=== PATIENT | female | born 1950 | race Caucasian/White ===

== ENCOUNTER 2016-06-24 11:18 | Inpatient (IN) | payer OTHER ==
[~2016-06-24] VITALS: Ht 160 cm; Wt 54.4 kg
[~2016-06-24 11:18] MED LIST: ATI.5 PO; ENAL20TA46 PO; LEVO500T6; LEVO500T6 PO; METF1000 PO; SITA50TA3 PO
[2016-06-24 11:41] VITALS: BP 110/79
--- NOTE | 2016-06-24 11:53 | NUR ---
Patient taken to bed 01 via wheelchair per EMT.
--- NOTE | 2016-06-24 12:11 | NUR ---
65/F TO SENT FROM PCP TO ED FOR ABNORMAL LABS OF LOW SODIUM. PT HAS NO MEDICAL COMPLAINS. DENIES PAIN. LUNGS CLEAR BILAT. HR EVEN AND REGULAR. AAOX4. VSS. NO SIGNS OF DISTRESS.
[2016-06-24] MEDS ORDERED: NACL 0.9% 1,000 ML IV ONE (12:15)
--- NOTE | 2016-06-24 12:30 | NUR ---
Dr. Mccann evaluating patient at bedside.
--- NOTE | 2016-06-24 12:35 | NUR ---
Patient appears to be resting comfortably in bed. Vital Signs within normal limits. Respirations even and unlabored.
[2016-06-24 12:41] LABS: BASOPHILS # (AUTO) 0.1 K/uL (0.00-0.22); BASOPHILS % (AUTO) 0.7 % (0.0-2.0); EOSINOPHILS # (AUTO) 0.2 K/uL (0-0.4); EOSINOPHILS % (AUTO) 2.1 % (0.0-4.0); HEMATOCRIT 34.9 % (36-48); HEMOGLOBIN 11.3 g/dL (12.0-16.0); LYMPHOCYTES # (AUTO) 1.4 K/uL (2.5-16.5); LYMPHOCYTES % (AUTO) 14.4 % (20.5-51.1); MEAN CORPUSCULAR HEMOGLOBIN 28 pg (27-31); MEAN CORPUSCULAR HGB CONC 32 g/dL (33-37); MEAN CORPUSCULAR VOLUME 88 fL (80-94); MONOCYTES # (AUTO) 0.5 K/uL (0.8-1.0); MONOCYTES % (AUTO) 5.3 % (1.7-9.3); NEUTROPHILS # (AUTO) 7.5 K/uL (1.8-7.7); NEUTROPHILS % (AUTO) 77.5 % (42.2-75.2); PLATELET COUNT (AUTO) 467 K/uL (140-450); RED BLOOD CELL COUNT(AUTO) 3.97 MIL/uL (4.20-5.40); RED CELL DISTRIBUTION WIDTH 13.5 % (11.6-13.7); WHITE BLOOD COUNT (AUTO) 9.7 K/uL (4.8-10.8)
[2016-06-24 12:52] LABS: ANION GAP 9.5 (8-16); CALCIUM 8.2 mg/dL (8.5-10.1); CARBON DIOXIDE 27.6 mmol/L (21-32); CREATININE 0.6 mg/dL (0.6-1.3); POTASSIUM 4.1 mmol/L (3.5-5.1)
--- NOTE | 2016-06-24 12:53 | NUR ---
Patient taken to XRAY via [facility].
[2016-06-24 12:58] LABS: ALBUMIN 3.4 g/dL (3.4-5.0); MAGNESIUM 1.6 mg/dL (1.8-2.4); PHOSPHORUS 3.4 mg/dL (2.5-4.9); TOTAL BILIRUBIN 0.2 mg/dL (0.0-1.0); TOTAL PROTEIN, SERUM 7.1 g/dL (6.4-8.2)
--- NOTE | 2016-06-24 13:20 | NUR ---
[facility].
--- NOTE | 2016-06-24 14:05 | NUR ---
Patient will be admitted to care of DR BRIAN. Admited to TELE. Will go to room 111A. Belongings list completed. Report to
[2016-06-24 14:20] VITALS: BP 134/70
--- NOTE | 2016-06-24 14:20 | NUR ---
PT ARRIVED FROM ER VIA [facility], PT IS AAOX4, ON ROOM AIR, IV TO RIGHT AC SALINE LOCK PATENT AND INTACT. SKIN INTACT. DAUGHTER AT BEDSIDE. INITIAL ASSESSMENT COMPLETED, REVIEWED PLAN OF CARE WITH BOTH PT AND DAUGHTER BOTH VERBALIZED UNDERSTANDING. ORIENTED PT TO ROOM AND ENVIRONMENT. CALL LIGHT WITHIN REACH. WILL CONTINUE TO MONITOR.
[2016-06-24 16:00] VITALS: BP 134/70
--- NOTE | 2016-06-24 16:05 | NUR ---
PAGED DR. BRIAN, REGARDING NEW ADMISSION ORDERS. AWAITING CALL BACK.
--- NOTE | 2016-06-24 16:43 | NUR ---
PT CURRENTLY VISITING WITH DAUGHTER. ALL NEEDS MET. CALL LIGHT WITHIN REACH. WILL CONTINUE TO MONITOR.
[2016-06-24] MEDS ORDERED: TRAV5SOL OP (17:34)
[2016-06-24] MEDS ORDERED: LORA10TA19 PO (17:34)
[2016-06-24] MEDS ORDERED: SERT50TA PO (17:34)
--- NOTE | 2016-06-24 18:25 | NUR ---
PT CURRENTLY VISITING WITH DAUGHTER. NO S/S OF DISTRESS OR DISCOMFORT NOTED. CALL LIGHT WITHIN REACH. WILL CONTINUE TO MONITOR.
--- NOTE | 2016-06-24 19:25 | NUR ---
ENDORSED PLAN OF CARE TO NIGHT NURSE. PT IN STABLE CONDITION.
--- NOTE | 2016-06-24 19:25 | NUR ---
IN TO SEE PT
--- NOTE | 2016-06-24 19:30 | NUR ---
RECEIVED PT IN STABLE CONDITION FROM AM NURSE, AWAKE,ALERT AND ORIENTED X4, WITH PERIODS OF CONFUSION AT NIGHT PER DAUGHTER. SO BED ALARM ON. ON TELE MONITORING. NO C/O PAIN NOR DISCOMFORT AT THIS TIME. HAS HL ON THE RT AC#20. DR. BRIAN HERE AND SEEN PT. WAITING FOR ORDERS. CALL LIGHT PLACED WITHIN EASY REACH. INSTRUCTED TO CALL FOR ASSISTANCE . PLAN OF CARE STILL NEED TO BE DISCUSSED. WILL CONTINUE TO MONITOR.
[2016-06-24] MEDS ORDERED: LORazepam 2 MG/ML VIAL IVP PRN (19:45)
[2016-06-24] MEDS ORDERED: HYDROcodone/APAP 5/325 MG 1 TAB TAB PO PRN ×2 (19:45)
[2016-06-24] MEDS ORDERED: ONDANSETRON 4 MG/2 ML VIAL IVP PRN (19:45)
[2016-06-24] MEDS ORDERED: LORATADINE 10 MG TAB PO PRN (19:50)
[2016-06-24 20:00] VITALS: BP 145/77
[2016-06-24] MEDS: NACL 0.9% 1,000 ML IV SCH (20:13)
--- NOTE | 2016-06-24 20:13 | NUR ---
IVF STARTED ORDERED. ALSO ROCEPHIN IVPB TO GIVE TONIGHT.
[2016-06-24] MEDS ORDERED: cefTRIAXone 1,000 MG VIAL ONE (20:25)
[2016-06-24] MEDS: ACETAMINOPHEN 325 MG TAB PO PRN (20:27)
[2016-06-24] MEDS ORDERED: NON-FORMULARY ITEM (Travoprost (Travatan Z 5 Ml) 1 DROP) OP SCH (21:00)
[2016-06-24] MEDS ORDERED: INSULIN LISPRO SLIDING SCALE 100 UNITS/ML VIAL SUBQ PRN (21:00)
[2016-06-24] MEDS ORDERED: MAGNESIUM OXIDE 400 MG TAB PO SCH (21:00)
[2016-06-24] MEDS: BLOOD GLUCOSE MONITORING 1 DEV DEV FS SCH (21:00)
--- NOTE | 2016-06-24 21:00 | NUR ---
INSULIN COVERAGE NOT GIVEN PT REFUSED FOR PT HAS GLUCOPHAGE PO TONIGHT.
--- NOTE | 2016-06-24 21:30 | NUR ---
EXPLAINED TO PT WHY SHE IS ON CONTACT ISOLATION ROOM. VERBALIZED UNDERSTANDING.
[2016-06-24] MEDS: metFORMIN 500 MG TAB PO SCH (21:38)
--- NOTE | 2016-06-24 22:20 | NUR ---
MAGNESIUM LEVEL 1.6 ,MAGNESIUM 800 MG PO GIVEN ORDERED. TOLERATED WELL.
--- NOTE | 2016-06-24 23:29 | NUR ---
NO ALLERGIC REACTION NOTED ON ROCEPHIN IV. WILL CONTINUE TO MONITOR.
[2016-06-25 00:20] VITALS: BP 150/88
[2016-06-25 01:39] LABS: APPEARANCE,URINE CLEAR (CLEAR); BILIRUBIN,URINE NEGATIVE (NEGATIVE); BLOOD, URINE NEGATIVE (NEGATIVE); COLOR,URINE YELLOW (YELLOW); LEUKOCYTE ESTERASE ,URINE NEGATIVE (NEGATIVE); NITRITE, URINE NEGATIVE (NEGATIVE); PH,URINE 7.5 (5.0-9.0); PROTEIN,URINE NEGATIVE (NEGATIVE); UGLUCOSE NEGATIVE (NEGATIVE); UROBILINOGEN,URINE 0.2 EU/dL (0.2 - 1)
--- NOTE | 2016-06-25 01:40 | NUR ---
HR ON MONITOR SUDDEN SLOW 46. BUT BACK UP . STILL CHECKED ON PT. AWAKE, NO DISTRESS NOR PAIN NOTED V/S TAKEN 99.1-127/54,63,18, O2 SAT ROOM AIR 98%. WILL CONTINUE TO MONITOR. Addendum: 06/25/16 at 0229 by Karol Maxwell RN CANCEL ABOVE NOTES. CAREGIVER MISTAKE.
[2016-06-25 01:45] LABS: BACTERIA,URINE RARE /HPF (None Seen); RBC,URINE 0-3 /HPF (0-5); WBC,URINE 0-3 /HPF (0-5)
--- NOTE | 2016-06-25 02:45 | NUR ---
SLEEPING WELL AT THIS TIME. NO S/S OF ANY DISCOMFORT NOR PAIN NOTED.
[2016-06-25 04:05] VITALS: BP 134/76
--- NOTE | 2016-06-25 06:16 | NUR ---
BLOOD SUGAR CHECKED RESULT 103. NO INSULIN NEEDED.
[2016-06-25] MEDS: BLOOD GLUCOSE MONITORING 1 DEV DEV FS SCH ×2 (06:18→11:33)
[2016-06-25 06:40] LABS: BASOPHILS # (AUTO) 0.1 K/uL (0.00-0.22); BASOPHILS % (AUTO) 1.2 % (0.0-2.0); EOSINOPHILS # (AUTO) 0.1 K/uL (0-0.4); EOSINOPHILS % (AUTO) 1.8 % (0.0-4.0); HEMATOCRIT 33.5 % (36-48); LYMPHOCYTES # (AUTO) 1.4 K/uL (2.5-16.5); LYMPHOCYTES % (AUTO) 22.2 % (20.5-51.1); MEAN CORPUSCULAR HEMOGLOBIN 29 pg (27-31); MEAN CORPUSCULAR HGB CONC 33 g/dL (33-37); MEAN CORPUSCULAR VOLUME 88 fL (80-94); MONOCYTES # (AUTO) 0.6 K/uL (0.8-1.0); NEUTROPHILS # (AUTO) 3.9 K/uL (1.8-7.7); NEUTROPHILS % (AUTO) 64.8 % (42.2-75.2); PLATELET COUNT (AUTO) 435 K/uL (140-450); RED CELL DISTRIBUTION WIDTH 13.6 % (11.6-13.7); WHITE BLOOD COUNT (AUTO) 6.1 K/uL (4.8-10.8)
[2016-06-25] MEDS ORDERED: LORATADINE 10 MG TAB PO PRN (06:48)
[2016-06-25 07:07] LABS: ALBUMIN 3.1 g/dL (3.4-5.0); ANION GAP 11.9 (8-16); CARBON DIOXIDE 26.1 mmol/L (21-32); CREATININE 0.6 mg/dL (0.6-1.3); MAGNESIUM 1.5 mg/dL (1.8-2.4); TOTAL BILIRUBIN 0.3 mg/dL (0.0-1.0); TOTAL PROTEIN, SERUM 6.6 g/dL (6.4-8.2)
--- NOTE | 2016-06-25 07:18 | NUR ---
ENDORSED PT IN STABLE CONDITION TO AM NURSE.
--- NOTE | 2016-06-25 07:20 | NUR ---
RECEIVED REPORT FROM GEOVANNA YATES. PT IS AAOX4. PT IS ON ROOM AIR. IV TO RIGHT AC #20, PATENT AND INTACT. SKIN IS INTACT. SAFETY PRECAUTIONS IN PLACE WITH BED IN LOWEST POSITION AND SIDE RAILS UP X2. CALL LIGHT WITHIN REACH. PT IS ON CONTACT ISOLATION WITH SIGNS POSTED OUTSIDE OF PT'S ROOM. WILL CONTINUE TO MONITOR.
[2016-06-25 08:00] VITALS: BP 147/119
--- NOTE | 2016-06-25 08:06 | NUR ---
PATIENT HAS BEEN SCREENED AND CATEGORIZED MODERATE NUTRITION RISK. PATIENT WILL BE SEEN WITHIN 3-5 DAYS OF ADMISSION. 06/27/16-06/29/[address]
--- NOTE | 2016-06-25 08:14 | NUR ---
DR. BRIAN IN TO SEE PT. INFORMED HER OF PT'S LOW MAGNESIUM: 1.5. WILL FOLLOW UP ON ORDERS
[2016-06-25] MEDS: metFORMIN 500 MG TAB PO SCH (08:20)
--- NOTE | 2016-06-25 08:23 | NUR ---
CHECKED BP: 147/119. ADMINISTERED MEDICATION ORDERED. PT TOLERATED WELL.
[2016-06-25] MEDS ORDERED: MAG SULF 20 GM/H2O PREMIX DRIP 500 ML IV SCH (08:45)
[2016-06-25] MEDS ORDERED: CITA20TA15 PO (08:46)
[2016-06-25] MEDS ORDERED: ENOXAPARIN 40 MG/0.4 ML SYR SUBQ SCH (09:00)
[2016-06-25] MEDS ORDERED: MAGNESIUM OXIDE 400 MG TAB PO SCH (09:00)
[2016-06-25] MEDS ORDERED: ENALAPRIL 10 MG TAB PO SCH (09:00)
[2016-06-25] MEDS: MAG SULF 2000 MG/WATER PREMIX 50 ML IV SCH ×2 (09:28→11:24)
[2016-06-25] MEDS: NACL 0.9% 1,000 ML IV SCH (09:29)
--- NOTE | 2016-06-25 09:52 | NUR ---
DAUGHTER PRESENT AT BEDSIDE.
[2016-06-25] MEDS: ACETAMINOPHEN 325 MG TAB PO PRN (10:43)
--- NOTE | 2016-06-25 10:43 | NUR ---
PT C/O HEADACHE, ACHING, THROBBING AND CONTINUOUS. 11/11. PT ALSO C/O ANXIETY. ADMINISTERED TYLENOL AND ATIVAN ORDERED PRN. PT TOLERATED WELL. WILL REASSESS.
--- NOTE | 2016-06-25 11:33 | NUR ---
PT TOLERATED MEDS WELL.
[2016-06-25 11:53] VITALS: BP 132/74
--- NOTE | 2016-06-25 12:47 | NUR ---
CHECKED ON PT. RESTING AT THIS TIME, AROUSABLE. PT'S SON, GEORGE PRESENT AT BEDSIDE. CURRENTLY WAITING FOR LAST DOSE OF MAGNESIUM TO FINISH INFUSING BEFORE PT IS DISCHARGED.
--- NOTE | 2016-06-25 14:17 | NUR ---
PT HAS BEEN DISCHARGED. ALL PAPERWORK SIGNED, ALL QUESTIONS ANSWERED. IV DC'ED WITH CANNULA INTACT. ALL BELONGINGS AND PRESCRIPTION IN PT POSSESSION. WRIST BANDS AND TELE MONITOR REMOVED. PT HAS OWN WHEELCHAIR. NOTIFIED DIE PRESS OPERATOR. PT LEFT UNIT IN STABLE CONDITION WITH SON PRESENT AT SIDE.
[2016-06-25] MEDS ORDERED: LATANOPROST 0.005% OP 2.5 ML BTL OP SCH (21:00)
== END 2016-06-25 14:22 | disposition home or self-care (01) | DRG 422 ==
LOC: MED 11:18 → MTU 13:47
PROVIDERS: ADMIT Hospitalist; ATTEND Hospitalist
DX: E87.1 Hypo-osmolality and hyponatremia (principal); E86.1 Hypovolemia; G30.9 Alzheimer's disease, unspecified; I15.2 Hypertension secondary to endocrine disorders; F33.9 Major depressive disorder, recurrent, unspecified; F02.80 Dementia in other diseases classified elsewhere, unspecified severity, without behavioral disturbance, psychotic disturbance, mood disturbance, and anxiety; N39.0 Urinary tract infection, site not specified; E11.9 Type 2 diabetes mellitus without complications; E83.42 Hypomagnesemia; T43.225A Adverse effect of selective serotonin reuptake inhibitors, initial encounter; H40.9 Unspecified glaucoma; Z98.890 Other specified postprocedural states; Z88.1 Allergy status to other antibiotic agents; Z88.0 Allergy status to penicillin; Y92.89 Other specified places as the place of occurrence of the external cause; Z74.01 Bed confinement status
CPT/HCPCS: 36415; 72100; 72220; 80053; 81001; 81003; 82948; 83735; 84100; 84484; 85025; 87081; 93005; 96360; 96361; 99285; J0696; J1650; J1815; J2060; J3475; J7030; J7060

== ENCOUNTER 2018-03-27 08:28 | Inpatient (IN) | payer OTHER ==
[~2018-03-27] VITALS: Ht 162.6 cm; Wt 54.4 kg
[~2018-03-27 08:28] MED LIST changes: +CEPH250C16 PO; +CITA20TA15 PO; +CRAN450C PO; +DOCU250S72 PO; +DONE5TAB6 PO; +LACT-2; -LEVO500T6; -LEVO500T6 PO; +LORA10TA19 PO; +TRAV5SOL OP; +VIT500LI PO
--- NOTE | 2018-03-27 08:29 | NUR ---
PT BIBA ALS TO BED 6
[2018-03-27 08:31] VITALS: BP 123/73
[2018-03-27] MEDS ORDERED: NACL 0.9% 500 ML IV SCH (08:36)
--- NOTE | 2018-03-27 08:46 | NUR ---
67 YO FEMALE BIB EMS FROM [facility] [place] FOR ONSET OF ALOC. ANSWERS QUESTIONS APPROPRIATELY. DENIES N/V/D; SKIN IS PINK/WARM/DRY; AAOX4 WITH EVEN AND STEADY GAIT; LUNGS CLEAR BL; HR EVEN AND REGULAR; PT DENIES ANY FEVER, CP, SOB, OR COUGH AT THIS TIME; PATIENT STATES PAIN OF 0/10 AT THIS TIME; VSS; PATIENT POSITIONED FOR COMFORT; HOB ELEVATED; BEDRAILS UP X2; BED DOWN. ER MD MADE AWARE OF PT STATUS.
--- NOTE | 2018-03-27 08:53 | NUR ---
PT TAKEN TO CT VIA JOURDAN
--- NOTE | 2018-03-27 09:04 | NUR ---
PT RETURNED FROM CT
--- NOTE | 2018-03-27 09:05 | NUR ---
RT AT BEDSIDE
[2018-03-27 09:10] LABS: HEMATOCRIT 39.7 % (36-48); HEMOGLOBIN 12.2 g/dL (12.0-16.0); MEAN CORPUSCULAR HEMOGLOBIN 27 pg (27-31); MEAN CORPUSCULAR HGB CONC 31 g/dL (33-37); MEAN CORPUSCULAR VOLUME 87.2 fL (80-94); PLATELET COUNT (AUTO) 271 K/uL (140-450); RED BLOOD CELL COUNT(AUTO) 4.55 MIL/uL (4.20-5.40); RED CELL DISTRIBUTION WIDTH 17.1 % (11.6-13.7); WHITE BLOOD COUNT (AUTO) 23.3 K/uL (4.8-10.8)
[2018-03-27 09:18] LABS: ANION GAP 14.1 (8-16); CARBON DIOXIDE 26.8 mmol/L (21-32); CREATININE 0.8 mg/dL (0.6-1.3); POTASSIUM 3.9 mmol/L (3.5-5.1)
[2018-03-27 09:24] LABS: PROTHROMBIN TIME 11.9 secs (10.8-13.4)
[2018-03-27 09:27] LABS: ALBUMIN 2.7 g/dL (3.4-5.0); LYMPHOCYTES % (MANUAL) 2 % (20-46); TOTAL BILIRUBIN 0.8 mg/dL (0.0-1.0)
[2018-03-27 09:28] LABS: MONOCYTES % (MANUAL) 3 % (5-12)
[2018-03-27] MEDS ORDERED: CLINDAMYCIN 900 MG in DEXTROSE 5% 100 ML IV ONE (09:35)
[2018-03-27] MEDS ORDERED: CLINDAMYCIN 900 MG/6 ML VIAL IV ONE (09:47)
[2018-03-27 09:59] LABS: BILIRUBIN,URINE 2+ (NEGATIVE); BLOOD, URINE TRACE-L (NEGATIVE); LEUKOCYTE ESTERASE ,URINE 3+ (NEGATIVE); NITRITE, URINE NEGATIVE (NEGATIVE); PH,URINE 8.5 (5.0-9.0); UGLUCOSE NEGATIVE (NEGATIVE)
[2018-03-27 10:00] LABS: APPEARANCE,URINE CLOUDY (CLEAR); COLOR,URINE YELLOW (YELLOW)
[2018-03-27 10:08] LABS: RBC,URINE 0-5 (RARE) /HPF (0-5); WBC,URINE 6-15 (FEW) /HPF (0-5)
--- NOTE | 2018-03-27 11:00 | NUR ---
PT TAKEN TO TELE FLOOR BY GEOVANNA KHAN AND EMT MARCE
--- NOTE | 2018-03-27 11:13 | NUR ---
Patient will be admitted to care of DR BARCLAY. Admited to TELE. PATEINT IN ROOM 122-B. Belongings list completed. Report to RNRICHIE.
--- NOTE | 2018-03-27 11:20 | NUR ---
PT ARRIVED TO UNIT VIA GURNEY. RECEIVED REPORT FROM ER NURSE AT BEDSIDE. PT IS AAOX2, LETHARGIC. ON 2L/NC, BREATHING SOUNDS CLEAR, PLACED PT ON TELE MONITOR, IV NOTED TO THE RIGHT HAND, G 20, PATENT AND INTACT. NO EDEMA NOTED, WOUND TO THE SACRAL, PIC IN CHART. PT HAS UPPER DENTURE. DAUGHTER AT BEDSIDE. NO S/S OF RESPIRATORY DISTRESS OR DISCOMFORT. VITAL SIGNS TAKEN AND TOLERATED WELL. MRSA SWAB COLLECTED. BED IN LOWEST POSITION, BED BREAKS ON, BOTH SIDE RAILS UP AND FALL PRECAUTIONS IN PALACE. BEDSIDE TABLE AND CALL LIGHT ARE WITHIN REACH. WILL CONTINUE TO MONITOR.
--- NOTE | 2018-03-27 11:50 | NUR ---
SPOKE WITH DR BARCLAY OVER THE PHONE, ORDERS RECEIVED FOR ACCU CHECK AND HUMALOG SLIDING SCALE, AND SWALLOW EVAL BY
[2018-03-27] MEDS ORDERED: INSULIN LISPRO SLIDING SCALE 100 UNITS/ML VIAL SUBQ PRN (11:55)
[2018-03-27 12:00] VITALS: BP 102/62
--- NOTE | 2018-03-27 12:00 | NUR ---
PT IS AAOX2, ABLE TO FOLLOW SIMPLE COMMANDS. ADMISSION QUESTIONS COMPLETED WITH PT'S DAUGHTER.
[2018-03-27] MEDS: NACL 0.9% 1,000 ML IV SCH (12:05)
[2018-03-27] MEDS: INSULIN LISPRO SLIDING SCALE 100 UNITS/ML VIAL SUBQ PRN ×2 (12:45→21:17)
--- NOTE | 2018-03-27 12:45 | NUR ---
CALLED [phone], PER PHYSICAL THERAPIST ST BHASKAR WILL COME IN THE AFTERNOON.
[2018-03-27] MEDS ORDERED: LORazepam 0.5 MG TAB PO PRN (13:00)
[2018-03-27] MEDS ORDERED: HYDROcodone/APAP 5/325 MG 1 TAB TAB PO PRN (13:00)
[2018-03-27] MEDS ORDERED: LORATADINE 10 MG TAB PO PRN (13:00)
[2018-03-27] MEDS ORDERED: ACETAMINOPHEN 325 MG TAB PO PRN (13:00)
[2018-03-27] MEDS ORDERED: DEXTROSE 50% 50 ML SYR IVP PRN (13:00)
[2018-03-27] MEDS ORDERED: ONDANSETRON 4 MG/2 ML VIAL IVP PRN (13:00)
--- NOTE | 2018-03-27 13:25 | NUR ---
URINE INCONX1, STRONG ODOR. CLEANED PT AND CHUX CHANGED.
--- NOTE | 2018-03-27 13:30 | NUR ---
PER DR BARCLAY, WEAN OFF O2. PT TOLERATED ROOM AIR, O2 SAT 95%.
[2018-03-27] MEDS ORDERED: BLOOD GLUCOSE MONITORING 1 DEV DEV FS SCH (16:30)
[2018-03-27 16:44] VITALS: BP 119/68
[2018-03-27] MEDS: BLOOD GLUCOSE MONITORING 1 DEV DEV FS SCH ×2 (17:21→21:14)
--- NOTE | 2018-03-27 17:35 | NUR ---
* ST NOTE * Pt seen at bedside w/nsg present. Pt alert, cooperative and engaged throughout session, reporting no c/o pain at this time. Bedside dysphagia and oral mechanism exams completed. See evaluation report for further details. Pt tolerating 4/4 alternating PO trials of puree apple sauce 3-5 CCs at a time via a spoon as well as 6/6 alternating PO trials of thin liquid apple juice via straw, all w/o s/s of aspiration. Pt and caregiver/nsg education completed re: aspiration precautions and safe swallow compensatory strategies pt and caregiver/nsg can utilize to aid pt w/swallow function. It is recommended pt's PO diet consistency be modified to puree textures w/thin liquids for all meals w/aspiration precautions in place 2/2 to pt's hx of ALOC. No further ST follow up recommended at this time. Pt and caregiver/nsg education completed re: results of evaluation; benefits of abiding by aspiration precautions and recommended PO diet consistency; and prognosis for improvement; with pt and caregiver/nsg verbalizing understanding and agreement w/clinician's recommendations. Recommend: - PO DIET CONSISTENCY OF PUREE TEXTURES W/THIN LIQUIDS for all meals - PO MEDICATION ADMINISTRATION CRUSHED IN PUREE TEXTURES - Pt requires assistance w/feeding - Maintain ASPIRATION PRECAUTIONS DURING PT'S PO INTAKE - Feeder to SIT PT UP AT 70-90 DEGREE ANGLE DURING PO INTAKE, FEED PT SLOWLY, ALTERNATING BTWN SOLIDS & LIQUIDS, AND UTILIZING SMALL BITES/SIPS No further ST follow up recommended at this time. G8996 G8997 CI G8998 CI NOMS Level 2 Time In/Out 17:10 - 17:40
[2018-03-27] MEDS ORDERED: Z-GUARD PASTE TP ONE (18:24)
--- NOTE | 2018-03-27 18:25 | NUR ---
WOUND DRESSING CHANGED. CLEANED WITH NS, PATTED DRY, APPLIED Z GUARD, APPLIED OPTIFOAM. PT TOLERATED WELL.
[2018-03-27] MEDS ORDERED: Z-GUARD PASTE TP SCH (18:30)
--- NOTE | 2018-03-27 19:30 | NUR ---
ENDORSED PT TO HOUSEHOLD COOK RN. PT IN STABLE CONDITION.
--- NOTE | 2018-03-27 19:35 | NUR ---
RECEIVED FROM AM RN IN BED AWAKE BUT WITH SLOW ANSWER . PT. BEEN MORE LETHARGIC SINCE ADMISSION. PER AM RN PT. WAS ABLE TO EAT DINNER. TOTAL ASSIST WITH ADLS. WITH SACRAL DECUBITUS ST 2 NOTED IN ER SINCE ADMISSION FROM SNF. NEEDS WILL BE ANTICIPATED AND WILL BE MET. TELEMETRY MONITORING. IVF SITE TO LEFT HAND #20 INTACT AND NO INFILTRATION. CARE PLANS FOR THE NIGHT EXPLAINED TO HER AND CALL LIGHT WITH IN REACH. BED ALARM ON.
[2018-03-27] MEDS ORDERED: LACTOBACILLUS ACIDOPHILUS SCH (21:00)
[2018-03-27] MEDS ORDERED: NON-FORMULARY ITEM (Travoprost (Travatan Z 5 Ml) 1 DROP) OP SCH (21:00)
[2018-03-27] MEDS ORDERED: NON-FORMULARY ITEM (Vit C/Ascorbate Ca/Ascorb Sod (Vitamin C 500 mg/15 ml Liquid) 500 MG) PO SCH (21:00)
[2018-03-27] MEDS: ASCORBIC ACID 500 MG TAB PO SCH (21:14)
[2018-03-27] MEDS: DOCUSATE SODIUM 100 MG GELCAP PO SCH (21:14)
[2018-03-27] MEDS: LATANOPROST 0.005% OP 2.5 ML BTL BOTH EYES SCH (21:15)
--- NOTE | 2018-03-27 21:56 | NUR ---
BLOOD SUGAR CHECK WAS 269 WITH REGULAR INSULIN COVERAGE. AWAKE AND ALERT. ABLE TO ANSWER SIMPLE QUESTION IN SLOW ANSWER. NEEDS WILL BE ANTICIPATED AND MET. TOTAL CARE . TURNED TO SIDES Q 2H.
[2018-03-28 00:41] VITALS: BP 128/70
--- NOTE | 2018-03-28 00:47 | NUR ---
PT. TURNED TO SIDES BY MULTIPLE RESAW OPERATOR. PILLOW SUPPORT TO PRESSURE AREAS. KEPT DRY AND COMFORTABLE. IVF SITE INTACT AND NO INFILTRATION.
[2018-03-28] MEDS: NACL 0.9% 1,000 ML IV SCH (00:49)
--- NOTE | 2018-03-28 02:00 | NUR ---
PT. TURNED TO SIDE. CLEANED RT WITH BM AND PADS WET WITH URINE.
--- NOTE | 2018-03-28 04:30 | NUR ---
PT. TURNED BY CNAS. BEDDING CHANGED RT WET WITH URINE . ON SPECIAL MATTRESS BED RT SACRAL PRESSURE ULCER. NEEDS ANTICIPATED AND MET. TOTAL CARE. 94 % 02 SAT ON ROOM AIR. PILLOW SUPPORT TO PRESSURE AREAS.
[2018-03-28 04:51] VITALS: BP 130/79
[2018-03-28] MEDS: BLOOD GLUCOSE MONITORING 1 DEV DEV FS SCH ×4 (06:00→21:22)
[2018-03-28] MEDS: INSULIN LISPRO SLIDING SCALE 100 UNITS/ML VIAL SUBQ PRN ×4 (06:02→21:18)
--- NOTE | 2018-03-28 06:33 | NUR ---
PATIENT HAS BEEN SCREENED AND CATEGORIZED HIGH NUTRITION RISK. PATIENT WILL BE SEEN WITHIN 1-2 DAYS OF ADMISSION. 03/28/18-03/29/18 HUY LING MS, RDN
--- NOTE | 2018-03-28 07:33 | NUR ---
ENDORSED TO THE NEXT RN FOR CONTINUITY OF CARE. AWAKE AND ALERT. ANSWERS IN INDONESIAN. TELEMETRY MONITORING. TOTAL CARE.
--- NOTE | 2018-03-28 07:38 | NUR ---
RECEIVED PT FROM SLIP INJECTOR AND APPLICATOR NURSETREVOR, PT IS AWAKE AND SIDE RAILS ARE UP AND CALL LIGHT WITHIN REACH, FALL PRECAUTION INITIATED, AND HAS AN IV LINE ON THE RT HAND G.22 WITH NS AT 75ML/HR, INFUSING. PT RESPONDS WHEN ASKED BUT SHOWS A FLAT AFFECT, PT DENIES PAIN AND NO SOB, NO SIGN OF DISTRESS NOTED. WILL CONTINUE TO MONITOR PT.
[2018-03-28 07:48] LABS: CARBON DIOXIDE 21.5 mmol/L (21-32); CREATININE 0.7 mg/dL (0.6-1.3)
[2018-03-28 07:51] LABS: HEMOGLOBIN 10.2 g/dL (12.0-16.0); MEAN CORPUSCULAR HEMOGLOBIN 27 pg (27-31); MEAN CORPUSCULAR HGB CONC 31 g/dL (33-37); MEAN CORPUSCULAR VOLUME 87.8 fL (80-94); PLATELET COUNT (AUTO) 201 K/uL (140-450); RED BLOOD CELL COUNT(AUTO) 3.75 MIL/uL (4.20-5.40); RED CELL DISTRIBUTION WIDTH 17.8 % (11.6-13.7); WHITE BLOOD COUNT (AUTO) 23.3 K/uL (4.8-10.8)
[2018-03-28 07:53] LABS: MAGNESIUM 1.6 mg/dL (1.8-2.4); PHOSPHORUS 2.9 mg/dL (2.5-4.9)
[2018-03-28 08:00] VITALS: BP 111/63
[2018-03-28 08:21] LABS: ANION GAP 17.8 (8-16); LYMPHOCYTES % (MANUAL) 4 % (20-46); MONOCYTES % (MANUAL) 4 % (5-12); POTASSIUM 3.3 mmol/L (3.5-5.1)
[2018-03-28] MEDS: LACTOBACILLUS RHAMNOSUS GG 1 EACH CAP PO SCH (08:44)
[2018-03-28] MEDS: DONEPEZIL 10 MG TAB PO SCH (08:45)
[2018-03-28] MEDS: DOCUSATE SODIUM 100 MG GELCAP PO SCH ×2 (08:46→21:17)
[2018-03-28] MEDS: CITALOPRAM 20 MG TAB PO SCH (08:46)
[2018-03-28] MEDS: ASCORBIC ACID 500 MG TAB PO SCH ×2 (08:47→21:17)
[2018-03-28] MEDS: ENOXAPARIN 30 MG/0.3 ML SYR SUBQ SCH (08:48)
[2018-03-28] MEDS: ENALAPRIL 10 MG TAB PO SCH (08:49)
--- NOTE | 2018-03-28 09:56 | NUR ---
SPOKE TO DR. MATTHEWS AND REPORTED THE PT'S MG LEVEL OF 1.6 AND K LEVEL OF 3.3, DR. MATTHEWS ORDERED TO GIVE THE PT KCL 40MEQ PO ONCE AND MGSO4 2GM IVPB ONCE, ORDERED READ BACK AND VERIFIED, WILL CARRY OUT MD ORDER.
[2018-03-28] MEDS ORDERED: MAG SULF 2000 MG/WATER PREMIX 50 ML IV ONE (10:40)
[2018-03-28] MEDS ORDERED: POTASSIUM CHLORIDE 10 MEQ TABER PO SCH (10:40)
--- NOTE | 2018-03-28 11:40 | NUR ---
PT IS AWAKE AND FAMILY MEMBER IS ON THE BEDSIDE, BLOOD GLUCOSE CHECK DONE AND RESULT IS 333, INSULIN 8 UNITS WAS GIVEN IN THE LEFT UA. NO SIGN OF DISTRESS NOTED AND WILL CONTINUE TO MONITOR PT.
[2018-03-28 12:00] VITALS: BP 114/65
[2018-03-28] MEDS: Z-GUARD PASTE TP SCH (13:09)
[2018-03-28] MEDS: NACL 0.45% 1,000 ML IV SCH (13:12)
--- NOTE | 2018-03-28 13:15 | NUR ---
PT IS AWAKE AND SON ON THE BEDSIDE, POTASSIUM 40MEQ GIVEN ORALLY, CRUSHED, AND ASPIRATION PRECAUTION INITIATED. NO SIGN OF DISTRESS NOTED. WILL CONTINUE TO MONITOR PT.
[2018-03-28 16:00] VITALS: BP 120/72
--- NOTE | 2018-03-28 17:23 | NUR ---
PT IS AWAKE AND V/S TAKEN AND WITHIN NORMAL LIMIT, BLOOD GLUCOSE CHECK DONE AND RESULT IS 282, PT WAS GIVEN 6 UNITS INSULIN, PT TOLERATED IT, NO SIGN OF DISTRESS NOTED. WILL CONTINUE TO MONITOR PT.
--- NOTE | 2018-03-28 19:40 | NUR ---
ENDORSED PT TO ELEMENTARY ELL TEACHER TREVOR FOR CONTINUITY OF CARE.
--- NOTE | 2018-03-28 19:41 | NUR ---
RECEIVED FROM AM RN IN BED AWAKE AND ALERT. NO SOB. ON ROOM AIR WITH 02 SAT OF 95 %. NEEDS WILL BE ANTICIPATED AND WILL BE MET. TELEMETRY MONITORING. BED ALARM ON. CALL LIGHT WITH IN REACH. PT. TURNED TO SIDES Q 2H. TOTAL CARE. DX. OF UTI /SEPSIS. AFEBRILE.
[2018-03-28 20:24] VITALS: BP 120/72
--- NOTE | 2018-03-28 21:00 | NUR ---
PT. TURNED BY CNAS. PILLOW SUPPORT TO PRESSURE AREAS. PT. CLEANED UP BY CNAS RT WET WITH URINE. KEPT CLEAN AND DRY. PREFERS TO HAVE ONLY THIN BLANKET. REFUSES THICK BLANKET. AFEBRILE. ON SPECIAL BED.
[2018-03-28] MEDS: LATANOPROST 0.005% OP 2.5 ML BTL BOTH EYES SCH (21:19)
--- NOTE | 2018-03-28 23:16 | NUR ---
TURNED BY CNAS Q 2H. WAKES UP EASILY WHEN TOUCHED. ABLE TO ANSWER YES OR NO. NEEDS ANTICIPATED AND MET. TOTAL CARE. ON TELEMETRY MONITORING.
[2018-03-29 00:08] VITALS: BP 112/70
[2018-03-29] MEDS ORDERED: METOPROLOL 25 MG TAB PO ONE (00:25)
--- NOTE | 2018-03-29 02:15 | NUR ---
PT. TURNED BY CNAS. PILLOW SUPPORT TO PRESSURE AREAS. NEEDS ANTICIPATED AND MET. TOTAL CARE. ON TELEMETRY MONITORING.
--- NOTE | 2018-03-29 03:31 | NUR ---
TALKED TO , RESIDENT MD MUNOZ ABOUT METOPROLOL HE ORDERED FOR THIS PT. WHEN BP AT MIDNIGHT WAS ALREADY ON THE LOW SIDE. " I CANCELLED IT ANY WAYS WHEN I SAW BP WAS ON LOW SIDE ' PER Keila BELCHER.
[2018-03-29] MEDS: NACL 0.45% 1,000 ML IV SCH ×2 (03:39→14:50)
[2018-03-29 04:00] VITALS: BP 112/66
[2018-03-29] MEDS: INSULIN LISPRO SLIDING SCALE 100 UNITS/ML VIAL SUBQ PRN ×4 (05:31→21:50)
[2018-03-29] MEDS: BLOOD GLUCOSE MONITORING 1 DEV DEV FS SCH ×4 (05:31→21:48)
[2018-03-29 07:19] LABS: BASOPHILS % (AUTO) 0.1 % (0.0-2.0); EOSINOPHILS # (AUTO) 0.3 K/uL (0-0.4); EOSINOPHILS % (AUTO) 1.9 % (0.0-4.0); HEMATOCRIT 28.6 % (36-48); HEMOGLOBIN 8.8 g/dL (12.0-16.0); LYMPHOCYTES # (AUTO) 0.9 K/uL (2.5-16.5); LYMPHOCYTES % (AUTO) 5.5 % (20.5-51.1); MEAN CORPUSCULAR HEMOGLOBIN 27 pg (27-31); MEAN CORPUSCULAR HGB CONC 31 g/dL (33-37); MEAN CORPUSCULAR VOLUME 87.4 fL (80-94); MONOCYTES # (AUTO) 0.6 K/uL (0.8-1.0); MONOCYTES % (AUTO) 3.5 % (1.7-9.3); NEUTROPHILS # (AUTO) 14.1 K/uL (1.8-7.7); PLATELET COUNT (AUTO) 163 K/uL (140-450); RED BLOOD CELL COUNT(AUTO) 3.27 MIL/uL (4.20-5.40); RED CELL DISTRIBUTION WIDTH 17.7 % (11.6-13.7); WHITE BLOOD COUNT (AUTO) 15.8 K/uL (4.8-10.8)
[2018-03-29 08:00] VITALS: BP 119/71
[2018-03-29 08:30] LABS: MAGNESIUM 2.1 mg/dL (1.8-2.4); PHOSPHORUS 2.2 mg/dL (2.5-4.9)
[2018-03-29 08:39] LABS: ANION GAP 12.6 (8-16); CARBON DIOXIDE 23.1 mmol/L (21-32); CREATININE 0.7 mg/dL (0.6-1.3); POTASSIUM 3.7 mmol/L (3.5-5.1)
[2018-03-29] MEDS: Z-GUARD PASTE TP SCH (09:00)
[2018-03-29] MEDS: CITALOPRAM 20 MG TAB PO SCH (09:48)
[2018-03-29] MEDS: ASCORBIC ACID 500 MG TAB PO SCH ×2 (09:49→20:36)
[2018-03-29] MEDS: DONEPEZIL 10 MG TAB PO SCH (09:49)
[2018-03-29] MEDS: DOCUSATE SODIUM 100 MG GELCAP PO SCH ×2 (09:49→20:36)
[2018-03-29] MEDS: LACTOBACILLUS RHAMNOSUS GG 1 EACH CAP PO SCH (09:49)
[2018-03-29] MEDS: ENOXAPARIN 30 MG/0.3 ML SYR SUBQ SCH (09:50)
[2018-03-29] MEDS: ENALAPRIL 10 MG TAB PO SCH (09:51)
--- NOTE | 2018-03-29 09:54 | NUR ---
RECEIVED BEDSIDE REPORT FROM PROGRAM MANAGEMENT PROFESSIONAL NURSE. PATIENT AAOX4. NO SIGNS OF RESPIRATORY DISTRESS NOTED, ON ROOM AIR. PATIENT ON TELE MONITOR. PATIENT UNABLE TO AMBULATE, INCONTINENT OF BOWEL AND BLADDER. SACRAL WOUND WITH DRESSING ON, CLEAN AND DRY. IV ON R FA 20 G INFUSING 1/2 NS AT 75. IV CLEAN DRY AND INTACT. FALL RISK PROTOCOL IN PLACE. BED IN LOW POSITION, CALL LIGHT WITHIN REACH. WILL CONTINUE TO MONITOR. Addendum: 03/29/18 at 1010 by Mandy Spring RN 0715 WRONG TIME. AND ADDITIONAL INFORMATION. PATIENT ON WOUND CARE BED D/T SACRAL COCCYX WOUND. [facility] [place]
--- NOTE | 2018-03-29 10:11 | NUR ---
CHANGED LINEN AND SOILED DRESSING. PATIENT TURNED TO SIDE. NO DISTRESS NOTED. WILL CONTINUE TO MONITOR.
--- NOTE | 2018-03-29 11:05 | NUR ---
WOUND CARE EVALUATION NOTE: REASON FOR EVALUATION: LOW ALEJO SCORE AND SACRALCOCCYX WOUND SKIN ASSESSMENT DONE WITH PRIMARY RN AT 10:00 AM WITH THIS 67 Y/O FEMALE PT ADMITTED [place] [facility] [place] [facility] WITH INITIAL DX AMS. PAST MEDICAL HX INCLUDES HTN, DM, UTI AND DEMENTIA. PT. ADMITTED TO [facility] WITH UN-STAGEABLE PRESSURE INJURY TO SACRALCOCCYX AREA. ALL ABOVE INFORMATION OBTAINED FROM ADMISSION H&P. LABS ARE WBC 15.8, H/H 8.8/28.6, GLUCOSE 186 AND ALBUMIN 2.7. PT IS AWAKE. SKIN IS WARM AND DRY, BLE NO HAIR GROWTH, NO EDEMA. DORSAL PEDAL PULSES PRESENT AND NORMAL. CAPILLARY REFILLED < 2 SEC. X 10 TOES. INCONTINENT OF BOWEL AND BLADDER. PLAN OF CARE DISCUSSED WITH PRIMARY RN AND DAUGHTER, YUMIKO. COMORBIDITIES RELATED TO FURTHER SKIN BREAKS AND DELAY WOUND HEALING DISCUSSED WITH DAUGHTER, SHE VERBALIS UNDERSTANDING. INTEGUMENTARY: -INCONTINENT ASSOCIATE DERMATITIS (IAD) TO: B/L GROINS EXTENDED TO PERINEUM REDNESS, SKIN INTACT -PRESSURE INJURY UN-STAGEABLE TO SACRALCOCCYX, 3X2 CM, DEPTH IS UTD, WOUND BED 100% COVER WITH DARK BROWN AND YELLOW SLOUGH, WOUND EDGE FLAT SATISH-WOUND SKIN THIN AND FRAGILE, SURROUNDING TISSUE REDNESS INDICATED FURTHER DAMAGED -BLANCHABLE REDNESS TO BILATERAL HEELS RECOMMENDATIONS: -KEEP SKIN DRY AND CLEAN AT ALL TIMES, PLEASE CHECK Q2H AND PRN FOR INCONTINENCY OF BOWEL AND BLADDER. -APPLY HYDRAGUARD TO R/L GROINS EXTENDED TO PERINEUM BID AND PRN IF SOILING LEAVT IT OPEN TO AIR -CLEANSE SACRALCOCCYX WITH NS, PAT DRY, APPLY THERAHONEY GEL, COVER WITH FORM DRESSING QD AND PRN IF SOILING -OFFLOAD BILATERAL HEELS BY PLACING PILLOWS UNDER CALVES UNLESS OTHERWISE CONTRAINDICATED -PRESSURE REDISTRIBUTION SURFACE THERAPY -TURN AND REPOSITION Q2H, OFFLOAD SACRALCOCCYX BY TURNING RIGHT AND LEFT -HOB NOT TO ELEVATED MORE THAN 30 DEGREE UNLESS OTHERWISE CONTRAINDICATED -PLEASE APPLY GEL CUSHION TO WHEELCHAIR AND AVOID PROLONG SITTING POSITION -CONTINUE TO FOLLOW RD RECOMMENDATIONS ALL ABOVE RECOMMENDATIONS DISCUSSED WITH PRIMARY RN. WILL FOLLOW UP PT Q7-10 DAYS. PLEASE CONTACT WOUND CARE NURSE FOR ANY QUESTION AND CHANGE OF WOUND CONDITION. Addendum: 03/29/18 at 1205 by Kenyon Sanders RN (Grace) CLARIFICATION: CLEANSE SACRALCOCCYX WITH NS, PAT DRY, APPLY THERAHONEY GEL, COVER WITH OPTIC FOAM DRESSING QD AND PRN IF SOILING
[2018-03-29 12:00] VITALS: BP 111/64
--- NOTE | 2018-03-29 12:42 | NUR ---
PATIENT BEING FED BY FAMILY AT BEDSIDE. PATIENT TOLERATING WELL. WILL CONTINUE TO MONITOR.
--- NOTE | 2018-03-29 12:57 | NUR ---
03/29/18 RD INITIAL ASSESSMENT COMPLETED PLEASE REFER TO NUTRITION ASSESSMENT UNDER CARE ACTIVITY FOR ESTIMATED NUTRITIONAL NEEDS. 1. CONTINUE CCHO 60 GM PUREE DIET TOLERATED 2. CONTINUED VITAMIN C FOR PRESSURE INJURY 3. RD TO FOLLOW-UP 3-5 DAYS, MODERATE RISK SHEILA DELCID, RD
[2018-03-29] MEDS: THERAHONEY GEL 42.5 GM TP SCH (13:00)
[2018-03-29] MEDS: HYDRAGUARD CREAM TP SCH (13:00)
--- NOTE | 2018-03-29 14:00 | NUR ---
PATIENT SLEEPING. NO SIGNS OF RESPIRATORY DISTRESS, ON RA. WILL CONTINUE TO MONITOR.
--- NOTE | 2018-03-29 14:30 | NUR ---
CLEANSED PERINEAL AREA AND CHANGED SACRAL WOUND DRESSING. PATIENT TOLERATED WELL. WILL CONTINUE TO MONITOR.
--- NOTE | 2018-03-29 15:00 | NUR ---
FAMILY AT BEDSIDE. SPEAKING WITH PATIENT. NO SIGNS OF DISTRESS NOTED, ON RA. WILL CONTINUE TO MONITOR.
[2018-03-29 16:00] VITALS: BP 102/53
--- NOTE | 2018-03-29 18:44 | NUR ---
PATIENT WATCHING TV. NO SIGNS OF RESPIRATORY DISTRESS, ON RA. WILL CONTINUE TO MONITOR.
--- NOTE | 2018-03-29 19:30 | NUR ---
GAVE BEDSIDE REPORT TO FINANCIAL RECRUITER NURSE. PATIENT ENDORSED IN STABLE CONDITION.
--- NOTE | 2018-03-29 19:31 | NUR ---
RECEIVED BEDSIDE REPORT FROM LICENSED LOAN OFFICER NURSE. PATIENT AAOX3. NO SIGNS OF RESPIRATORY DISTRESS NOTED, ON ROOM AIR. PATIENT ON TELE MONITOR. PATIENT UNABLE TO AMBULATE, INCONTINENT OF BOWEL AND BLADDER. SACRAL WOUND WITH DRESSING ON, CLEAN AND DRY. IV ON R FA 20 G INFUSING 1/2 NS AT 75. IV CLEAN DRY AND INTACT. DAUGHTER AT BEDSIDE. FALL RISK PROTOCOL IN PLACE. BED IN LOW POSITION, CALL LIGHT WITHIN REACH. WILL CONTINUE TO MONITOR.
[2018-03-29 20:00] VITALS: BP 116/71
[2018-03-29] MEDS: LATANOPROST 0.005% OP 2.5 ML BTL BOTH EYES SCH (20:37)
--- NOTE | 2018-03-29 21:00 | NUR ---
MEDICATED PT, TOLERATED WELL WITH PUREE DIET. PT TURNED Q2, PT TOLERATED WELL. NO COMPLAINTS. DRESSING CHECKED DRY INTACT AND IN PLACE. PERINEAL AREA ON THERAHONEY TX APPLIED. PT TRYING TO SLEEP.
--- NOTE | 2018-03-29 21:50 | NUR ---
BLOOD SUGAR HIGH 284 MG/DL-GIVEN INSULIN HUMALOG ORDERED. INFORMED DAUGHTER VIA PHONE CALL.
--- NOTE | 2018-03-29 22:15 | NUR ---
ENDORSED TO ANOTHER MACHINE MOLDER SQUEEZE NURSE FOR CONTINUITY OF CARE. PT IN STABLE CONDITION, SLEEPING. NOT IN RESPIRATORY DISTRESS.
--- NOTE | 2018-03-29 22:16 | NUR ---
INFORMED NEXT NURSE TO ENDORSE TO AM SHIFT PER REQUEST OF DAUGHTER TO MAKE SURE THE WOUND TREATMENT/ INSTRUCTIONS ARE TO BE INCLUDED IN THE DISCHARGE INSTRUCTIONS FOR SNF FACILITY TO CARRY OVER. AND TO TURN PT Q2. PT C/O OF BEING WARM, T 99.3, PT TOOKK OF LAYERS OF BLANKET ON HER. INFORMED NEXT NURSE.
--- NOTE | 2018-03-29 22:17 | NUR ---
RECEIVED REPORT FROM TONI CH FOR CONTINUITY OF CARE. PT IS A/OX2, ON ROOM AIR. PT IS ON BEDREST AND FALL RISK. PT HAS SACRAL PRESSURE ULCER. PT HAS A 20G IV TO RIGHT HAND, ASYMPTOMATIC AND INTACT. DISCUSSED PLAN OF CARE WITH PT, PT VERBALIZED UNDERSTANDING. VITAL SIGNS WITHIN NORMAL LIMITS. PT STABLE, DENIES PAIN, NO SIGNS OF DISTRESS NOTED AT THIS TIME. PT POSITIONED FOR COMFORT. BED IN LOWEST POSITION, BED ALARM ON. CALL LIGHT WITHIN REACH, WILL CONTINUE TO MONITOR.
[2018-03-30] VITALS: BP 107/68
--- NOTE | 2018-03-30 | NUR ---
VITAL SIGNS WITHIN NORMAL LIMITS. DENIES PAIN, NO SIGNS OF DISTRESS NOTED AT THIS TIME. PT POSITIONED FOR COMFORT. BED IN LOWEST POSITION, BED ALARM ON. CALL LIGHT WITHIN REACH, WILL CONTINUE TO MONITOR.
[2018-03-30] MEDS: HYDRAGUARD CREAM TP SCH ×2 (00:54→13:00)
--- NOTE | 2018-03-30 02:25 | NUR ---
NO SIGNS OF DISTRESS NOTED AT THIS TIME. PT POSITIONED FOR COMFORT. BED IN LOWEST POSITION, BED ALARM ON. CALL LIGHT WITHIN REACH, WILL CONTINUE TO MONITOR.
[2018-03-30 04:00] VITALS: BP 112/61
[2018-03-30] MEDS: NACL 0.45% 1,000 ML IV SCH (04:10)
[2018-03-30] MEDS: INSULIN LISPRO SLIDING SCALE 100 UNITS/ML VIAL SUBQ PRN ×3 (05:48→18:08)
[2018-03-30] MEDS: BLOOD GLUCOSE MONITORING 1 DEV DEV FS SCH ×3 (05:50→16:51)
--- NOTE | 2018-03-30 07:40 | NUR ---
ENDORSED PT TO DAY SHIFT RN IBETH FOR CONTINUITY OF CARE. PT IN STABLE CONDITION.
--- NOTE | 2018-03-30 07:41 | NUR ---
RECEIVED BEDSIDE REPORT FROM NOZZLE TENDER NURSE. PATIENT IS AWAKE, ALERT AND ORIENTEDX2. NO SIGNS OF DISTRESS ON RA. SKIN HAS SACRAL ULCER, DRESSING IS CLEAN, DRY AND INTACT. IV ON R HAND 20G INFUSING 1/2NS AT 75. CLEAN,DRY AND INTACT. PATIENT BEDBOUND. FALL RISK PROTOCOL IN PLACE. BED IN LOW POSITION, CALL LIGHT WITHIN REACH, WILL CONTINUE TO MONITOR THE PATIENT
[2018-03-30 07:51] LABS: BASOPHILS % (AUTO) 0.3 % (0.0-2.0); EOSINOPHILS # (AUTO) 0.6 K/uL (0-0.4); EOSINOPHILS % (AUTO) 4.9 % (0.0-4.0); HEMATOCRIT 26.4 % (36-48); HEMOGLOBIN 8.3 g/dL (12.0-16.0); LYMPHOCYTES # (AUTO) 0.9 K/uL (2.5-16.5); LYMPHOCYTES % (AUTO) 7.6 % (20.5-51.1); MEAN CORPUSCULAR HEMOGLOBIN 28 pg (27-31); MEAN CORPUSCULAR HGB CONC 31 g/dL (33-37); MEAN CORPUSCULAR VOLUME 87.4 fL (80-94); MONOCYTES # (AUTO) 0.6 K/uL (0.8-1.0); MONOCYTES % (AUTO) 5.3 % (1.7-9.3); NEUTROPHILS # (AUTO) 9.5 K/uL (1.8-7.7); NEUTROPHILS % (AUTO) 81.9 % (42.2-75.2); PLATELET COUNT (AUTO) 147 K/uL (140-450); RED BLOOD CELL COUNT(AUTO) 3.01 MIL/uL (4.20-5.40); RED CELL DISTRIBUTION WIDTH 17.5 % (11.6-13.7); WHITE BLOOD COUNT (AUTO) 11.6 K/uL (4.8-10.8)
[2018-03-30 08:00] VITALS: BP 126/60
[2018-03-30] MEDS: LACTOBACILLUS RHAMNOSUS GG 1 EACH CAP PO SCH (08:14)
[2018-03-30] MEDS: ASCORBIC ACID 500 MG TAB PO SCH (08:16)
[2018-03-30] MEDS: DONEPEZIL 10 MG TAB PO SCH (08:17)
[2018-03-30] MEDS: CITALOPRAM 20 MG TAB PO SCH (08:17)
[2018-03-30] MEDS: ENALAPRIL 10 MG TAB PO SCH (08:18)
[2018-03-30] MEDS: ENOXAPARIN 30 MG/0.3 ML SYR SUBQ SCH (08:19)
[2018-03-30] MEDS: DOCUSATE SODIUM 100 MG GELCAP PO SCH (08:28)
--- NOTE | 2018-03-30 08:29 | NUR ---
ADMINISTERED MEDS. PATIENT TOLERATED WELL. NO SIGNS OF DISTRESS. PATIENT REFUSED COLACE. WILL CONTINUE TO MONITOR THE PATIENT
[2018-03-30 08:30] LABS: MAGNESIUM 1.7 mg/dL (1.8-2.4); PHOSPHORUS 2.3 mg/dL (2.5-4.9)
[2018-03-30 09:20] LABS: ANION GAP 12.6 (8-16); CREATININE 0.7 mg/dL (0.6-1.3); POTASSIUM 3.6 mmol/L (3.5-5.1)
--- NOTE | 2018-03-30 10:00 | NUR ---
PATIENT SITTING IN BED. NO SIGNS OF DISTRESS. WILL CONTINUE TO MONITOR THE PATIENT.
[2018-03-30] MEDS ORDERED: MAG SULF 2000 MG/WATER PREMIX 50 ML IV ONE (10:15)
[2018-03-30] MEDS: MAGNESIUM SULFATE 1GM in DEXTROSE 5% 100 ML PREMIX IV SCH ×2 (10:59→12:44)
--- NOTE | 2018-03-30 11:05 | NUR ---
ADMINISTERED ORDERED MAGNESIUM. PATIENT TOLERATING WELL. DAUGHTER AT BEDSIDE. WILL CONTINUE TO MONITOR THE PATIENT.
[2018-03-30 12:00] VITALS: BP 106/56
[2018-03-30] MEDS ORDERED: ZINC220C12 PO (12:06)
[2018-03-30] MEDS ORDERED: ROC1PM IV (12:06)
[2018-03-30] MEDS ORDERED: ACET-9525 PO (12:06)
[2018-03-30] MEDS ORDERED: VITC500 PO (12:06)
[2018-03-30] MEDS ORDERED: LACT10CA PO (12:06)
--- NOTE | 2018-03-30 12:15 | NUR ---
CALLED [facility] SPOKE WITH JULIAN FOR BED . SHE REQUESTED THE RECENT LAB , CULTURES RESULT, MEDS AND PROGRESS NOTE AND FAXED TO [phone]
--- NOTE | 2018-03-30 12:50 | NUR ---
ADMINISTERED SECOND BAG OF MG. PATIENT TOLERATED WELL. ADMINISTERED POTASSIUM AND INSULIN. PATIENT TOLERATED WELL. WILL CONTINUE TO MONITOR THE PATIENT.
[2018-03-30] MEDS: THERAHONEY GEL 42.5 GM TP SCH (13:00)
[2018-03-30] MEDS ORDERED: POTASSIUM CHLORIDE 20% 40 MEQ/15 ML UDC PO SCH (13:00)
--- NOTE | 2018-03-30 13:31 | NUR ---
CALLED TO CHECK FOR THE BED SPOKE WITH JULIAN AND PATIENT CAN GO TO ROOM [address] NARVAEZ. ARRANGE TRANSPORT WITH [facility] THE NEXT AVAILABLE TIME IS 1800.
--- NOTE | 2018-03-30 14:41 | NUR ---
PATIENT IS SLEEPING. NO SIGNS OF DISTRESS ON RA. WILL CONTINUE TO MONITOR THE PATIENT
--- NOTE | 2018-03-30 14:56 | NUR ---
ADMINISTERED MEDS. PATIENT TOLERATED WELL. PATIENT IS SLEEPING. WILL CONTINUE TO MONITOR THE PATIENT
[2018-03-30 16:00] VITALS: BP 117/61
--- NOTE | 2018-03-30 16:52 | NUR ---
PATIENT IS WATCHING TV. DAUGHTER AT BEDSIDE. WILL CONTINUE TO MONITOR
--- NOTE | 2018-03-30 17:39 | NUR ---
GAVE TELEPHONE REPORT TO GEOVANNA SAVAGE AT [facility] [place]. GAVE CALL BACK NUMBER AND ANSWERED ALL QUESTIONS AT THIS TIME.
--- NOTE | 2018-03-30 18:19 | NUR ---
EDUCATED PATIENT AND DAUGHTER AT BEDSIDE ABOUT DISEASE PROCESS, ABN S/SX AND WHEN TO GO TO THE ER, EDUCATED ON MEDS, EDUCATED ON WOUND CARE, EDUCATED ON FOLLOW UP W PCP, PNA AND FLU VACCINE UP TO DATE. PATIENT WILL CONTINUE ANTIBIOTICS, SHE WILL BE LEAVING W IV. IV IS CLEAN, DRY AND INTACT. DAUGHTER SIGNED PAPERWORK AND VERBALIZED UNDERSTANDING.
--- NOTE | 2018-03-30 19:15 | NUR ---
GAVE BEDSIDE REPORT TO HORTICULT[employer] FARMER NURSE. PATIENT ENDORSED IN STABLE CONDITION.
--- NOTE | 2018-03-30 19:22 | NUR ---
MOVED WRIST BANDS AND TELE BOX. IV IN RIGHT HAND, SL, BLUE CAP APPLIED. ALL D/C PAPERWORK SIGNED. PATIENT LEFT VIA GURNEY TO [facility] [place]. PATIENT STABLE.
--- NOTE | 2018-03-31 14:57 | NUR ---
1422 RECEIVED AUTH# FOR TRANSPORT FROM DAVIS BAKER AT [facility]. CALLED [facility] AND SPOKE WITH ANGEL AND PROVIDED HER WITH AUTH# [id number]
== END 2018-03-30 19:40 | DRG 720 ==
LOC: MED 08:28 → MTU 10:51
PROVIDERS: ADMIT Internal Medicine Pulmonary Disease; ATTEND Internal Medicine Pulmonary Disease
DX: A41.9 Sepsis, unspecified organism (principal); L89.152 Pressure ulcer of sacral region, stage 2; I11.0 Hypertensive heart disease with heart failure; E87.0 Hyperosmolality and hypernatremia; R53.2 Functional quadriplegia; F05 Delirium due to known physiological condition; G30.9 Alzheimer's disease, unspecified; I50.9 Heart failure, unspecified; E86.0 Dehydration; E86.9 Volume depletion, unspecified; E44.1 Mild protein-calorie malnutrition; N39.0 Urinary tract infection, site not specified; F02.80 Dementia in other diseases classified elsewhere, unspecified severity, without behavioral disturbance, psychotic disturbance, mood disturbance, and anxiety; E11.65 Type 2 diabetes mellitus with hyperglycemia; Z79.899 Other long term (current) drug therapy; Z88.0 Allergy status to penicillin; Z88.1 Allergy status to other antibiotic agents; Z79.84 Long term (current) use of oral hypoglycemic drugs; Z68.20 Body mass index [BMI] 20.0-20.9, adult
CPT/HCPCS: 36415; 70450; 71045; 80048; 80053; 81001; 82948; 83605; 83735; 83880; 84100; 84484; 85025; 85610; 85730; 87040; 87081; 87086; 92610; 93005; 96361; 96365; 99285; C1758; J0696; J1650; J1815; J3475; J3490; J7030; J7060

== ENCOUNTER 2018-12-19 18:52 | Inpatient (IN) | payer OTHER ==
[~2018-12-19] VITALS: Ht 162.6 cm; Wt 47.6 kg
[~2018-12-19 18:52] MED LIST changes: +ACET-9525 PO; -CEPH250C16 PO; +LACT10CA PO; +ROC1PM IV; +VITC500 PO; +ZINC220C12 PO
--- NOTE | 2018-12-19 18:52 | NUR ---
PT PLACED IN BED 10.
[2018-12-19 19:01] VITALS: BP 162/87
[2018-12-19] MEDS ORDERED: ACETAMINOPHEN 650 MG SUPP RC ONE (19:05)
--- NOTE | 2018-12-19 19:15 | NUR ---
69Y FEMALE, BIBA FROM [facility] [place]OC AND INCREASING LETHARGY, DAUGHTER AT BEDSIDE PER DAUGHTER PT NON-VERBAL, PT AWAKE, RR EVEN UNLABORED, SKIN FLUSHED WARM, DRY TO TOUCH. EDMD MADE AWARE, WILL CONTINUE TO MONITOR CLOSELY.
[2018-12-19] MEDS ORDERED: NACL 0.9% 500 ML IV ONE (19:50)
[2018-12-19] MEDS ORDERED: NACL 0.9% 1,000 ML IV ONE (19:50)
[2018-12-19] MEDS ORDERED: VANCOMYCIN IV ONE (19:50)
[2018-12-19] MEDS ORDERED: DEXTROSE 5% IV ONE (19:50)
[2018-12-19] MEDS ORDERED: GENTAMICIN 150 MG in DEXTROSE 5% 100 ML IV ONE (20:00)
[2018-12-19] MEDS ORDERED: VANCOMYCIN 1,000 MG VIAL ONE (20:29)
[2018-12-19] MEDS ORDERED: GENTAMICIN 80 MG/2 ML VIAL ONE ×2 (20:29→20:44)
[2018-12-19 20:30] LABS: BASOPHILS # (AUTO) 0.1 K/uL (0.00-0.22); BASOPHILS % (AUTO) 0.5 % (0.0-2.0); EOSINOPHILS # (AUTO) 0.1 K/uL (0-0.4); EOSINOPHILS % (AUTO) 1.1 % (0.0-4.0); HEMATOCRIT 33.6 % (36-48); HEMOGLOBIN 10.9 g/dL (12.0-16.0); LYMPHOCYTES # (AUTO) 1.4 K/uL (2.5-16.5); LYMPHOCYTES % (AUTO) 13.8 % (20.5-51.1); MEAN CORPUSCULAR HEMOGLOBIN 28 pg (27-31); MEAN CORPUSCULAR HGB CONC 32 g/dL (33-37); MEAN CORPUSCULAR VOLUME 86.2 fL (80-94); MONOCYTES # (AUTO) 0.7 K/uL (0.8-1.0); MONOCYTES % (AUTO) 6.6 % (1.7-9.3); NEUTROPHILS # (AUTO) 7.7 K/uL (1.8-7.7); PLATELET COUNT (AUTO) 363 K/uL (140-450); RED CELL DISTRIBUTION WIDTH 17.8 % (11.6-13.7); WHITE BLOOD COUNT (AUTO) 9.9 K/uL (4.8-10.8)
--- NOTE | 2018-12-19 20:30 | NUR ---
CONTACT INFORMATION: YUMIKO (DAUGHTER)
[2018-12-19 20:44] LABS: ANION GAP 16.1 (8-16); CARBON DIOXIDE 27.1 mmol/L (21-32); CREATININE 0.7 mg/dL (0.6-1.3); POTASSIUM 4.2 mmol/L (3.5-5.1)
--- NOTE | 2018-12-19 20:45 | NUR ---
PERICARE PROVIDED. AREA CLEAN AND DRY. REPOSITIONED FOR COMFORT. WILL CONTINUE TO MONITOR.
[2018-12-19 20:56] LABS: APPEARANCE,URINE CLOUDY (CLEAR); BILIRUBIN,URINE NEGATIVE (NEGATIVE); BLOOD, URINE TRACE-I (NEGATIVE); COLOR,URINE YELLOW (YELLOW); LEUKOCYTE ESTERASE ,URINE 2+ (NEGATIVE); NITRITE, URINE NEGATIVE (NEGATIVE); PH,URINE 8.5 (5.0-9.0); UGLUCOSE 2+ (NEGATIVE)
[2018-12-19 21:00] LABS: ALBUMIN 2.9 g/dL (3.4-5.0); TOTAL BILIRUBIN 0.2 mg/dL (0.0-1.0)
[2018-12-19 21:04] LABS: WBC,URINE 60-80 /HPF (0-5)
--- NOTE | 2018-12-19 21:45 | NUR ---
PT RESTING IN BED COMFORTABLY. VSS. WILL CONTINUE TO MONITOR.
--- NOTE | 2018-12-19 23:57 | NUR ---
SPOKE TO DAUGHTER YUMIKO REGARDING PT'S ADMISSION TO ROOM 110. DAUGHTER EXPRESSED SATISFACTION.
[2018-12-20 00:05] VITALS: BP 143/82
--- NOTE | 2018-12-20 00:05 | NUR ---
REPORT RECEIVED FROM ED NURSE AT BEDSIDE. PT IN STABLE CONDITION. AAOX1. INTRODUCED SELF TO PT. BOARD UPDATED. NO COMPLAINTS OF PAIN. NO SOB. AFEBRILE. PT IS BEDBOUND. IV SITE R WRIST 20G RUNNING NS@80ML/HR PATENT AND INTACT. SKIN WARM, DRY, AND NOT INTACT DUE TO SACRAL WOUND AND REDNESS OF THE L MEDIAL ANKLE. BED LOCKED IN LOW POSITION. CALL CARO WITHIN REACH. BED ALARM ON. SAFETY PRECAUTION IN PLACE. ALL NEEDS MET AT THIS TIME.
--- NOTE | 2018-12-20 00:10 | NUR ---
Muarli katz in [facility] - 12/20/18 at 0013 by [email or web address] Transfer of care and report given to GEOVANNA Schwartz
--- NOTE | 2018-12-20 00:10 | NUR ---
Patient will be admitted to care of Dr. Cannon. Admited to Tele. Will go to room 110b. Belongings list completed. VSS. Report to GEOVANNA Schwartz.
--- NOTE | 2018-12-20 00:10 | NUR ---
Transfer of care and report given to GEOVANNA Schwartz
--- NOTE | 2018-12-20 00:12 | NUR ---
Note sterling in ED - 12/20/18 at 0013 by [email or web address] Patient will be admitted to care of Dr. Cannon. Admited to Tele. Will go to room 110b. Belongings list completed. VSS. Report to GEOVANNA Schwartz.
[2018-12-20] MEDS ORDERED: ACETAMINOPHEN 325 MG TAB PO PRN (01:15)
[2018-12-20] MEDS ORDERED: HYDROcodone/APAP 5/325 MG 1 TAB TAB PO PRN ×2 (01:15→08:10)
[2018-12-20] MEDS ORDERED: GENTAMICIN PER PHARMACY MC PRN (01:15)
[2018-12-20] MEDS ORDERED: VANCOMYCIN PER PHARMACY MC PRN (01:15)
[2018-12-20] MEDS ORDERED: ONDANSETRON 4 MG/2 ML VIAL IVP PRN (01:15)
[2018-12-20] MEDS: NACL 0.9% 1,000 ML IV SCH ×2 (01:49→14:41)
--- NOTE | 2018-12-20 02:00 | NUR ---
PT SLEEPING COMFORTABLY BUT AROUSABLE. NO S/S OF DISTRESS NOTED. NO COMPLAINTS OF PAIN. NO SOB. AFEBRILE. WILL CONTINUE TO MONITOR.
--- NOTE | 2018-12-20 03:30 | NUR ---
PT SLEEPING COMFORTABLY IN BED BUT AROUSABLE. NO S/S OF DISTRESS NOTED. RESPIRATIONS EVEN, UNLABORED, AND WNL. WILL CONTINUE TO MONITOR.
[2018-12-20 04:00] VITALS: BP 164/68
--- NOTE | 2018-12-20 04:45 | NUR ---
PT LINENS CHANGED. PT TURNED.
--- NOTE | 2018-12-20 05:45 | NUR ---
PT SLEEPING COMFORTABLY BUT IN BED. NO S/S OF DISTRESS NOTED. NO COMPLAINTS OF PAIN. NO SOB. AFEBRILE. WILL CONTINUE TO MONITOR.
[2018-12-20] MEDS: BLOOD GLUCOSE MONITORING 1 DEV DEV FS SCH ×4 (07:03→20:25)
--- NOTE | 2018-12-20 07:03 | NUR ---
BS 195. 2 UNITS OF HUMALOG GIVEN. PT TOLERATED WELL.
[2018-12-20 07:04] LABS: BASOPHILS # (AUTO) 0.1 K/uL (0.00-0.22); BASOPHILS % (AUTO) 0.8 % (0.0-2.0); EOSINOPHILS # (AUTO) 0.2 K/uL (0-0.4); EOSINOPHILS % (AUTO) 2.1 % (0.0-4.0); HEMATOCRIT 31.6 % (36-48); HEMOGLOBIN 10.1 g/dL (12.0-16.0); LYMPHOCYTES # (AUTO) 1.4 K/uL (2.5-16.5); LYMPHOCYTES % (AUTO) 15.3 % (20.5-51.1); MEAN CORPUSCULAR HEMOGLOBIN 28 pg (27-31); MEAN CORPUSCULAR HGB CONC 32 g/dL (33-37); MEAN CORPUSCULAR VOLUME 86.6 fL (80-94); MONOCYTES # (AUTO) 0.6 K/uL (0.8-1.0); MONOCYTES % (AUTO) 6.5 % (1.7-9.3); NEUTROPHILS # (AUTO) 6.7 K/uL (1.8-7.7); NEUTROPHILS % (AUTO) 75.3 % (42.2-75.2); PLATELET COUNT (AUTO) 300 K/uL (140-450); RED BLOOD CELL COUNT(AUTO) 3.65 MIL/uL (4.20-5.40); RED CELL DISTRIBUTION WIDTH 17.9 % (11.6-13.7); WHITE BLOOD COUNT (AUTO) 8.9 K/uL (4.8-10.8)
[2018-12-20] MEDS: INSULIN LISPRO SLIDING SCALE 100 UNITS/ML VIAL SUBQ PRN ×3 (07:05→17:47)
--- NOTE | 2018-12-20 07:20 | NUR ---
REPORT GIVEN TO AM NURSE AT BEDSIDE. PT IN STABLE CONDITION.
--- NOTE | 2018-12-20 07:21 | NUR ---
Received bedside report from pm nurse Efren. Pt resting in bed, aaox2, no c/o pain/discomfort, no signs of distress, respirations even & nonlabored in room air. Right wrist IV intact & asymptomatic with ongoing NS @ 80ml/hr. Bed alarm on. Call light within reach.
[2018-12-20 07:27] LABS: ANION GAP 13.6 (8-16); CARBON DIOXIDE 26.2 mmol/L (21-32); CREATININE 0.5 mg/dL (0.6-1.3); POTASSIUM 3.8 mmol/L (3.5-5.1)
[2018-12-20 07:58] VITALS: BP 176/82
--- NOTE | 2018-12-20 08:02 | NUR ---
PATIENT HAS BEEN SCREENED AND CATEGORIZED HIGH NUTRITION RISK. PATIENT WILL BE SEEN WITHIN 1-2 DAYS OF ADMISSION. 12/20/18-12/21/[address]
--- NOTE | 2018-12-20 08:04 | NUR ---
Dr Kaufman paged re: HTN with pending med recon review. Awaiting call back.
[2018-12-20] MEDS ORDERED: cloNIDine 0.1 MG TAB PO PRN (08:10)
[2018-12-20] MEDS ORDERED: LORATADINE 10 MG TAB PO PRN (08:10)
--- NOTE | 2018-12-20 08:10 | NUR ---
Received call back from Dr Kaufman & notified of BP 176/82 with pending med recon review by physician. Per Dr Kaufman, cont all home meds & add Clonidine prn. All orders noted & carried out. Pt currently resting in bed, no c/o discomfort, respirations even & nonlabored.
--- NOTE | 2018-12-20 08:25 | NUR ---
Daughter Kaur at bedside visiting pt. Informs nurse that pt was [place] puree diet [place] [facility] [place] Diet order changed. New breakfast tray ordered from [facility].
[2018-12-20] MEDS ORDERED: DOCUSATE SODIUM 100 MG GELCAP PO SCH (09:00)
[2018-12-20] MEDS ORDERED: ASCORBIC ACID 500 MG TAB PO SCH (09:00)
[2018-12-20] MEDS ORDERED: NON-FORMULARY ITEM (Vit C/Ascorbate Ca/Ascorb Sod (Vitamin C 500 mg/15 ml Liquid) 500 MG) PO SCH (09:00)
[2018-12-20] MEDS ORDERED: NON-FORMULARY ITEM (Lactobacillus Rhamnosus Gg (Culturelle Health & Wellness) 1 EACH) PO SCH (09:00)
--- NOTE | 2018-12-20 09:00 | NUR ---
Pt on high fowlers in bed, eating breakfast with assistance by daughter. Pt berto puree diet & nectar-thick liquids well. No signs of aspiration noted.
[2018-12-20] MEDS: VANCOMYCIN 500 MG in DEXTROSE 5% 100 ML IV SCH ×2 (09:09→20:18)
[2018-12-20] MEDS: ZINC SULF 220 MG CAP PO SCH (09:13)
[2018-12-20] MEDS: ENALAPRIL 10 MG TAB PO SCH (09:14)
[2018-12-20] MEDS: CITALOPRAM 20 MG TAB PO SCH (09:15)
[2018-12-20] MEDS: DONEPEZIL 10 MG TAB PO SCH (09:15)
[2018-12-20] MEDS: ENOXAPARIN 40 MG/0.4 ML SYR SUBQ SCH (09:16)
[2018-12-20] MEDS: LACTOBACILLUS RHAMNOSUS GG 1 EACH CAP PO SCH (09:16)
--- NOTE | 2018-12-20 10:10 | NUR ---
WOUND CARE EVALUATION NOTE: REASON FOR EVALUATION: LOW ALEJO SCORE AND SACRALCOCCYX WOUND SKIN ASSESSMENT DONE WITH PRIMARY RN ON THIS 68 Y/O FEMALE PT ADMITTED TO [facility] WITH INITIAL DX SEPSIS UTI. PAST MEDICAL HX INCLUDES HTN, DM, UTI HX OF PRESSURE ULCER AND DEMENTIA. PT. ADMITTED TO [facility] WITH STAGE 2 PRESSURE ULCER AND PREVIOUSLY RECORD SHOWN UN-STAGEABLE PRESSURE INJURY TO SACRALCOCCYX AREA. ALL ABOVE INFORMATION OBTAINED FROM ADMISSION H&P. PT IS AWAKE, DOESN�T FOLLOW DIRECTIONS. SKIN IS WARM AND DRY, BLE NO HAIR GROWTH, NO EDEMA. DORSAL PEDAL PULSES PRESENT AND NORMAL. CAPILLARY REFILLED < 2 SEC. X 10 TOES. INCONTINENT OF BOWEL AND BLADDER. PLAN OF CARE DISCUSSED WITH PRIMARY RN AND DAUGHTER, UYMIKO. DAUGHTER VERBALIS UNDERSTANDING. INTEGUMENTARY: -PRESSURE ULCER STAGE 2 TO SACRALCOCCYX, 2X2 CM WITH SUPERFICIAL DEPTH WOUND BED 100% GRANULATING TISSUE, WOUND EDGE FLAT SATISH-WOUND SKIN THIN AND FRAGILE, SURROUNDING TISSUE WITH MULTIPLE PIN POINTS EROSIONS FROM [facility]IST[facility] ASSOCIATED DERMATITIS INDICATED FURTHER DAMAGED -BLANCHABLE REDNESS TO BILATERAL ANKLES AND HEELS, SKIN INTACT RECOMMENDATIONS: -KEEP SKIN DRY AND CLEAN AT ALL TIMES, PLEASE CHECK Q2H AND PRN FOR INCONTINENCY OF BOWEL AND BLADDER. -APPLY HYDRAGUARD TO R/L ANKLES AND HEELS BIDWC AND PRN IF SOILING LEAVE IT OPEN TO AIR -CLEANSE SACRALCOCCYX WITH NS, PAT DRY, APPLY Z-GUARD, COVER WITH OPTIC FOAM DRESSING QD AND PRN IF SOILING -OFFLOAD BILATERAL HEELS BY PLACING PILLOWS UNDER CALVES UNLESS OTHERWISE CONTRAINDICATED -PRESSURE REDISTRIBUTION SURFACE THERAPY -TURN AND REPOSITION Q2H, OFFLOAD SACRALCOCCYX BY TURNING RIGHT AND LEFT -CONTINUE TO FOLLOW RD RECOMMENDATIONS ALL ABOVE RECOMMENDATIONS DISCUSSED WITH PRIMARY RN. WILL FOLLOW UP PT Q7-10 DAYS. PLEASE CONTACT WOUND CARE NURSE FOR ANY QUESTION AND CHANGE OF WOUND CONDITION.
--- NOTE | 2018-12-20 10:23 | NUR ---
NO ASSIGNED PROVIDER FOR THIS PATIENT, PATIENT IS FROM [facility] [place].
[2018-12-20 12:00] VITALS: BP 157/88
[2018-12-20] MEDS: HYDRAGUARD CREAM TP SCH (13:00)
[2018-12-20] MEDS: Z-GUARD PASTE TP SCH (13:00)
--- NOTE | 2018-12-20 13:31 | NUR ---
12/20/18 RD INITIAL ASSESSMENT COMPLETED PLEASE REFER TO NUTRITION ASSESSMENT UNDER CARE ACTIVITY FOR ESTIMATED NUTRITIONAL NEEDS. 1. CONTINUE CCHO 60 GM PUREE DIET W/NECTAR THICK LIQUIDS TOLERATED 2. RECOMMEND GLUCERNA WITH NECTAR THICK LIQUIDS 3. CONTINUE VITAMIN C AND ZINC FOR WOUND HEALING 4. PROVIDE FEEDING ASSISTANCE FOR MEALS 5. RD TO FOLLOW-UP 3-5 DAYS, MODERATE RISK SHEILA DELCID RD
[2018-12-20 16:00] VITALS: BP 135/68
[2018-12-20] MEDS: metFORMIN 500 MG TAB PO SCH (17:40)
--- NOTE | 2018-12-20 19:23 | NUR ---
Report given to pm nurse Efren. Pt resting in bed, no signs of distress.
--- NOTE | 2018-12-20 19:24 | NUR ---
REPORT RECEIVED FROM AM NURSE AT BEDSIDE. PT IN STABLE CONDITION. AAOX4. INTRODUCED SELF TO PT. BOARD UPDATED. NO COMPLAINTS OF PAIN. NO SOB. AFEBRILE. PT IS BEDBOUND. IV SITE R WRIST 20G RUNNING NS@80ML/HR PATENT AND INTACT. SKIN WARM, DRY, AND NON INTACT DUE TO SACRAL WOUND. BED LOCKED IN LOW POSITION. CALL CARO WITHIN REACH. SAFETY PRECAUTION IN PLACE. BED ALARM ON. ALL NEEDS MET AT THIS TIME.
[2018-12-20 20:00] VITALS: BP 104/48
[2018-12-20] MEDS: ASCORBIC ACID 500 MG/5 ML ORASYR PO SCH (20:17)
[2018-12-20] MEDS: DOCUSATE 100 MG/10 ML UDC PO SCH (20:17)
--- NOTE | 2018-12-20 20:18 | NUR ---
JUAN HUNG AND RUNNING. XALATAN DROPS APPLIED TO BOTH EYES. COLACE AND VIT C GIVEN PO WITH THICKENING LIQUID. BS 146. NO INSULIN COVERAGE NEEDED. PT TOLERATED WELL.
[2018-12-20] MEDS ORDERED: NON-FORMULARY ITEM (Travoprost (Travatan Z 5 Ml) 1 DROP) OP SCH (21:00)
[2018-12-20] MEDS ORDERED: LATANOPROST 0.005% OP 2.5 ML BTL OP SCH (21:00)
--- NOTE | 2018-12-20 21:00 | NUR ---
REPORT GIVEN TO GISELA AUSTIN. PT IN STABLE CONDITION.
--- NOTE | 2018-12-20 21:10 | NUR ---
RECEIVED PT FROM JUDY RN ; PT SLEEPING NOT DISTRESS NOTED, ON TELEMETRY SR , IV ON RT WRIST INFUSING WELL , PT REPOSITIONED
[2018-12-20] MEDS ORDERED: GENTAMICIN IV SCH (23:00)
[2018-12-20] MEDS ORDERED: DEXTROSE 5% IV SCH (23:00)
--- NOTE | 2018-12-20 23:00 | NUR ---
PT INCONTINENT, PT IS CLEANED AND LINEN CHANGED , PT ON TELEMETRY SR.
[2018-12-21] VITALS: BP 99/48
--- NOTE | 2018-12-21 | NUR ---
PT HAS BEEN MONITORING CLOSE REPOSITIONED Q2H, NOT DISTRESS NOTED
[2018-12-21] MEDS: HYDRAGUARD CREAM TP SCH ×2 (01:00→13:13)
--- NOTE | 2018-12-21 03:00 | NUR ---
SPONGE BATHGIVEN LINEN CHANGED PT COOPERTIVE PT WAS TRANSFER TO WOUND BED
[2018-12-21 04:00] VITALS: BP 126/73
[2018-12-21] MEDS: NACL 0.9% 1,000 ML IV SCH ×2 (04:16→15:30)
[2018-12-21] MEDS: BLOOD GLUCOSE MONITORING 1 DEV DEV FS SCH ×3 (05:30→16:44)
--- NOTE | 2018-12-21 06:00 | NUR ---
BLOOD SUGAR TEST 141 NOT COVERAGE PT REPOSITIONED Q2H
--- NOTE | 2018-12-21 07:08 | NUR ---
PT MORE ALERT FOLLOW SIMPLE COMMANDS ANSWER QUESTION SHE VERBALIZED THAT AHE IS IN THE HOSPITAL , PT WILL BE ENDORSED TO DAY SHIFT NURSE FOR CONTINUE ;OF CARE
--- NOTE | 2018-12-21 07:20 | NUR ---
RECEIVED REPORT FROM ROAD MACHINE RUNNER NURSE. PT AAOX1 TO PERSON, WILL NEED FREQUENT REMINDERS AND REORIENTATION TO ROOM AND EQUIPMENT. NO C/O PAIN AT THIS TIME. PT ON TELE MONITOR. IV ON RT WRIST 20 GA RUNNING IVF PER ORDER. RESPIRATIONS EVEN AND UNLABORED ON RA. ABD SOFT, BS ACTIVE THROUGHOUT, LBM 12/20. SKIN IS WARM TO TOUCH, NOTED SACRAL PRESSURE ULCER, SKIN CARE DAILY AND PRN. PT ON FALL PRECAUTIONS, SAFETY MEASURES IN PLACE, CALL LIGHT WITHIN REACH. REVIEWED POC WITH PT, PT WILL NEED REINFORCEMENT.
[2018-12-21 08:00] VITALS: BP 145/70
[2018-12-21] MEDS: metFORMIN 500 MG TAB PO SCH ×2 (08:48→16:41)
--- NOTE | 2018-12-21 08:48 | NUR ---
GIVEN MEDICATIONS PER ORDER, REVIEWED INDICATIONS AND POTENTIAL SIDE EFFECTS OF MEDICATIONS. MEDICATIONS GIVEN WITH APPLESAUCE.
[2018-12-21] MEDS: ZINC SULF 220 MG CAP PO SCH (08:49)
[2018-12-21] MEDS: DONEPEZIL 10 MG TAB PO SCH (08:49)
[2018-12-21] MEDS: ENALAPRIL 10 MG TAB PO SCH (08:49)
[2018-12-21] MEDS: LACTOBACILLUS RHAMNOSUS GG 1 EACH CAP PO SCH (08:49)
[2018-12-21] MEDS: CITALOPRAM 20 MG TAB PO SCH (08:49)
[2018-12-21] MEDS: DOCUSATE 100 MG/10 ML UDC PO SCH (08:50)
[2018-12-21] MEDS: ENOXAPARIN 40 MG/0.4 ML SYR SUBQ SCH (08:51)
[2018-12-21] MEDS: VANCOMYCIN 500 MG in DEXTROSE 5% 100 ML IV SCH (08:52)
[2018-12-21] MEDS: ASCORBIC ACID 500 MG/5 ML ORASYR PO SCH (08:59)
[2018-12-21] MEDS: INSULIN LISPRO SLIDING SCALE 100 UNITS/ML VIAL SUBQ PRN ×2 (11:42→16:47)
--- NOTE | 2018-12-21 11:42 | NUR ---
GIVEN 4 UNITS OF HUMALOG PER SLIDING SCALE FOR BS AT 249, NO S/S OF HYPERGLYCEMIA.
[2018-12-21 12:00] VITALS: BP 120/61
[2018-12-21] MEDS: Z-GUARD PASTE TP SCH (13:13)
--- NOTE | 2018-12-21 13:13 | NUR ---
PT GIVEN SKIN AND SATISH CARE, WOUND ASSESSMENT DONE. PT HAS NO SIGNS OF DISTRESS OR C/O PAIN AT THIS TIME.
--- NOTE | 2018-12-21 13:54 | NUR ---
SPOKE WITH RADHA [place] [facility] [place] AND CAN GO TO ROOM 45B .
[2018-12-21] MEDS ORDERED: [UNRECOGNIZED DRUG - CODE] (14:16)
--- NOTE | 2018-12-21 14:30 | NUR ---
LEFT VOICEMAIL FOR YUMIKO/DAUGHTER REGARDING PLAN TO TRANSFER PT TO [facility] [place] TODAY.
[2018-12-21 16:00] VITALS: BP 115/66
--- NOTE | 2018-12-21 16:00 | NUR ---
RECEIVED AUTH # [facility] [id number] ARRANGED TRANSPORT WITH [facility] TIME IS 8PM NOTIFIED PRINCE AUSTIN
--- NOTE | 2018-12-21 18:44 | NUR ---
SPOKE TO MARIAH AT [facility] [place] AND GAVE REPORT ON PATIENT FOR CONTINUITY OF CARE. WILL ENDORSE TO COMPLIANCE MGR NURSE.
--- NOTE | 2018-12-21 19:30 | NUR ---
RECEIVED BEDSIDE REPORT FROM ZAK ROLDAN, Addendum: 12/21/18 at 2247 by Delano Duncan RN ADDITIONAL INFO: FOR PT'S CONTINUITY OF CARE. PT IS TO BE TRANSFERRED BACK TO [facility] AT 1999 VIA [facility]. PT IS LYING DOWN, ASLEEP, WITH NO SIGNS OF DISTRESS. ALL DISCHARGE PAPERWORK AND REPORT TO [facility] DONE BY ZAK HILL RN. WILL CONTINUE TO MONITOR PT.
--- NOTE | 2018-12-21 19:45 | NUR ---
[facility] CALLED FOR ETA, 45 MIN TO 1 HR FROM NOW. PT STILL ASLEEP, WITH NO SIGNS OF DISTRESS.
[2018-12-21] MEDS ORDERED: VANCOMYCIN 750 MG in DEXTROSE 5% 250 ML IV SCH (21:00)
--- NOTE | 2018-12-21 22:00 | NUR ---
PATIENT BEING TRANSFERRED TO [facility] [place] VIA [facility]. VS ARE FF: T 97.5, BP 120/69, P 83, O2 SAT 98%, RR 19. PT SHOWS NO SIGNS OF DISTRESS. IV ON RIGHT WRIST 20G WRAPPED, PATENT AND INTACT. REPORT WAS GIVEN TO SOBEIDA ([facility]), BY AM SHIFT RN FOR TRANSFER TO ROOM 45B.
== END 2018-12-21 22:00 | DRG 720 ==
LOC: MED 18:52 → MTU 23:43
PROVIDERS: ADMIT Internal Medicine; ATTEND Internal Medicine
DX: A41.9 Sepsis, unspecified organism (principal); N17.9 Acute kidney failure, unspecified; G30.9 Alzheimer's disease, unspecified; E86.0 Dehydration; E44.1 Mild protein-calorie malnutrition; E11.9 Type 2 diabetes mellitus without complications; F02.80 Dementia in other diseases classified elsewhere, unspecified severity, without behavioral disturbance, psychotic disturbance, mood disturbance, and anxiety; N39.0 Urinary tract infection, site not specified; F32.9 Major depressive disorder, single episode, unspecified; F41.9 Anxiety disorder, unspecified; Z88.1 Allergy status to other antibiotic agents; Z88.0 Allergy status to penicillin; Z79.899 Other long term (current) drug therapy; I10 Essential (primary) hypertension; Z68.1 Body mass index [BMI] 19.9 or less, adult; Z74.01 Bed confinement status; H40.9 Unspecified glaucoma
CPT/HCPCS: 36415; 71045; 80048; 80053; 80202; 81001; 82550; 82553; 82948; 83605; 83874; 83880; 84484; 84703; 85025; 85610; 85730; 87040; 87081; 87086; 87186; 96361; 96365; 96366; 96367; 99291; C1758; J1580; J1650; J1815; J3370; J7030; J7060; Q0092

== ENCOUNTER 2019-01-20 10:03 | Emergency (ER) | payer OTHER ==
[~2019-01-20] VITALS: Ht 157.5 cm; Wt 47.7 kg
[~2019-01-20 10:03] MED LIST changes: -ROC1PM IV; +[UNRECOGNIZED DRUG - CODE]
--- NOTE | 2019-01-20 10:03 | NUR ---
PT SONYA BLS TO ER BED 06
[2019-01-20 10:14] VITALS: BP 130/73
--- NOTE | 2019-01-20 10:16 | NUR ---
BIBA FROM [facility] [place] REPORTED HTN AND TACHYCARDIA AT FACILITY, VITALS WNL AT THIS TIME. PT AAO TO HER NAME. SKIN SMALL OPEN AT SACRAL. P 71BP 146/80 AT THIS TIME. BUE& BLE TRACTURE.PAT PATIENT STATES PAIN OF 0/10 AT THIS TIME; PATIENT POSITIONED FOR COMFORT; HOB ELEVATED; BEDRAILS UP X2; BED DOWN. ER MD MADE AWARE OF PT STATUS. HX: HTN, DEMENTIA,DM.
--- NOTE | 2019-01-20 10:18 | NUR ---
ER AT BEDSIDE
[2019-01-20] MEDS ORDERED: NACL 0.9% 1,000 ML IV ONE (10:40)
[2019-01-20 11:34] LABS: ANION GAP 13.5 (8-16); CARBON DIOXIDE 27.9 mmol/L (21-32); CREATININE 0.7 mg/dL (0.6-1.3); POTASSIUM 4.4 mmol/L (3.5-5.1)
[2019-01-20 11:36] LABS: ALBUMIN 3.2 g/dL (3.4-5.0); BASOPHILS # (AUTO) 0.1 K/uL (0.00-0.22); BASOPHILS % (AUTO) 0.4 % (0.0-2.0); EOSINOPHILS % (AUTO) 0.2 % (0.0-4.0); HEMOGLOBIN 10.8 g/dL (12.0-16.0); LYMPHOCYTES # (AUTO) 1.1 K/uL (2.5-16.5); LYMPHOCYTES % (AUTO) 7.9 % (20.5-51.1); MEAN CORPUSCULAR HEMOGLOBIN 28 pg (27-31); MEAN CORPUSCULAR HGB CONC 32 g/dL (33-37); MONOCYTES # (AUTO) 0.7 K/uL (0.8-1.0); MONOCYTES % (AUTO) 4.8 % (1.7-9.3); NEUTROPHILS # (AUTO) 12.4 K/uL (1.8-7.7); NEUTROPHILS % (AUTO) 86.7 % (42.2-75.2); PLATELET COUNT (AUTO) 444 K/uL (140-450); RED BLOOD CELL COUNT(AUTO) 3.87 MIL/uL (4.20-5.40); RED CELL DISTRIBUTION WIDTH 17.8 % (11.6-13.7); TOTAL BILIRUBIN 0.4 mg/dL (0.0-1.0); WHITE BLOOD COUNT (AUTO) 14.3 K/uL (4.8-10.8)
[2019-01-20 11:39] LABS: APPEARANCE,URINE HAZY (CLEAR); BILIRUBIN,URINE NEGATIVE (NEGATIVE); BLOOD, URINE 1+ (NEGATIVE); COLOR,URINE YELLOW (YELLOW); UGLUCOSE 2+ (NEGATIVE)
[2019-01-20 11:40] LABS: LEUKOCYTE ESTERASE ,URINE 1+ (NEGATIVE)
[2019-01-20 11:44] LABS: WBC,URINE 60-80 /HPF (0-5)
[2019-01-20 11:45] LABS: NITRITE, URINE POSITIVE (NEGATIVE); RBC,URINE 0-5 /HPF (0-5)
[2019-01-20] MEDS ORDERED: cefTRIAXone 1,000 MG VIAL ONE (12:47)
--- NOTE | 2019-01-20 13:25 | NUR ---
DAUGHTER YUMIKO SYLVESTER ; TEL [phone]
[2019-01-20 13:54] LABS: BARBITURATE, URINE NEG. ng/ml (NEG <=200); BENZODIAZEPINE, URINE NEG. ng/mL (NEG <=200); CANNABINOID, URINE NEG. ng/mL (NEG <=50); COCAINE, URINE NEG. ng/mL (NEG <=300); OPIATE, URINE NEG. ng/mL (NEG <=2000); PHENCYCLIDINE SCREEN,URINE NEG. ng/mL (NEG <=25)
--- NOTE | 2019-01-20 14:00 | NUR ---
LUNCH GIVEN TO PT, BM NORMAL X 1.
--- NOTE | 2019-01-20 15:17 | NUR ---
REPORTED GIVEN TO DALLAS AUSTIN [phone]. [facility] CARGO ROUTER PT AT 17.00 PM.
--- NOTE | 2019-01-20 17:06 | NUR ---
SPOKE WITH [facility]--TRANSPORT DELAYED 60-90 MINS FOR CLEANING STAFF SUPERVISOR
--- NOTE | 2019-01-20 18:31 | NUR ---
Patient appears to be resting comfortably in bed. Vital Signs within normal limits. Respirations even and unlabored.will continue to monitor.
--- NOTE | 2019-01-20 18:40 | NUR ---
TRANSPORT AT BEDSIDE.
[2019-01-20 18:46] VITALS: BP 133/70
--- NOTE | 2019-01-20 18:46 | NUR ---
Patient discharged with v/s stable. Written and verbal after care instructions given and explained. Patient alert, oriented and verbalized understanding of instructions. Ambulance Transport with to care home. All questions addressed prior to discharge. ID band removed. Patient advised to follow up with PMD. Rx of keflex given. Patient educated on indication of medication including possible reaction and side effects. Opportunity to ask questions provided and answered.
--- NOTE | 2019-01-23 17:50 | NUR ---
REVIEWED MD NOTES OF TREATING MD 01/20/2019. APPROPRIATE TREATMENT GIVEN POSITIVE URINE CULTURE FOR MORGANELLA MORGANII IS SUSCEPTIBLE TO ROCEPHIN
--- NOTE | 2019-01-23 18:46 | NUR ---
AFTER FURTHER REVIEW WITH MD---ONLY 1 DOSE OF ROCEPHIN GIVEN IN ER--- I CALLED [facility], PT'S RESIDENCE. I SPOKE WITH OSVALDO MOY, PT CURRENTLY ON BACTRIM DS. ADVICED PT'S POSITIVE URINE CULTURE IS RESISTANCE TO IT. I FAXED OVER POSITIVE URINE CULTURE RESULTS TO OSVALDO [phone] HE WILL REACH OUT TO PT'S PCP IN AM.
== END 2019-01-20 18:36 | disposition home or self-care (01) ==
LOC: MED 10:03
DX: N39.0 Urinary tract infection, site not specified (principal); E11.65 Type 2 diabetes mellitus with hyperglycemia; J45.909 Unspecified asthma, uncomplicated; I10 Essential (primary) hypertension; F03.90 Unspecified dementia, unspecified severity, without behavioral disturbance, psychotic disturbance, mood disturbance, and anxiety; Z79.2 Long term (current) use of antibiotics; Z79.899 Other long term (current) drug therapy; Z79.891 Long term (current) use of opiate analgesic; Z88.0 Allergy status to penicillin; Z88.1 Allergy status to other antibiotic agents
CPT/HCPCS: 36415; 80053; 80305; 81001; 82948; 84484; 85025; 87086; 87186; 96361; 96365; 99284; J0696; J7030; 99283

== ENCOUNTER 2019-06-17 20:57 | Emergency (ER) | payer OTHER ==
[~2019-06-17] VITALS: Ht 162.6 cm; Wt 47.2 kg
[~2019-06-17 20:57] MED LIST changes: -ZINC220C12 PO; +ZINC220C28 PO
[2019-06-17 21:03] VITALS: BP 155/79
--- NOTE | 2019-06-17 21:13 | NUR ---
68 YO FEMALE BIBA FOR CHANGE IN LOC AND FEVER. ALL VSS AND NO FEVER. PT ON 2L O2. ALL LUNG SOUNDS CLEAR.
--- NOTE | 2019-06-17 21:32 | NUR ---
PT CAME WITH IV ON RIGHT HAND. TRIED TO FLUSH THE IV, IV NOT INSERTED. DRIED BLOOD ON THE HAND.
--- NOTE | 2019-06-17 21:40 | NUR ---
LAB AT BEDSIDE
[2019-06-17 22:02] LABS: BASOPHILS % (AUTO) 0.3 % (0.0-2.0); EOSINOPHILS % (AUTO) 0.1 % (0.0-4.0); HEMATOCRIT 34.5 % (36-48); HEMOGLOBIN 10.8 g/dL (12.0-16.0); LYMPHOCYTES % (AUTO) 7.2 % (20.5-51.1); MEAN CORPUSCULAR HEMOGLOBIN 28 pg (27-31); MEAN CORPUSCULAR HGB CONC 32 g/dL (33-37); MONOCYTES # (AUTO) 0.9 K/uL (0.8-1.0); MONOCYTES % (AUTO) 6.5 % (1.7-9.3); NEUTROPHILS # (AUTO) 11.4 K/uL (1.8-7.7); NEUTROPHILS % (AUTO) 85.9 % (42.2-75.2); PLATELET COUNT (AUTO) 489 K/uL (140-450); RED BLOOD CELL COUNT(AUTO) 3.92 MIL/uL (4.20-5.40); RED CELL DISTRIBUTION WIDTH 19.1 % (11.6-13.7); WHITE BLOOD COUNT (AUTO) 13.3 K/uL (4.8-10.8)
--- NOTE | 2019-06-17 22:09 | NUR ---
PT AWAKE AND ALERT TO NAME. ALL VSS.
[2019-06-17 22:19] LABS: ANION GAP 15.9 (8-16); CARBON DIOXIDE 27.1 mmol/L (21-32); CREATININE 0.8 mg/dL (0.6-1.3)
--- NOTE | 2019-06-17 23:47 | NUR ---
PT ASLEEP AND EASILY AROUSEABLE TO TOUCH AND NAME. VSS.
[2019-06-18 01:25] VITALS: BP 140/82
--- NOTE | 2019-06-18 01:27 | NUR ---
PT PICKED UP BY [facility]HA[facility] AT 0106 AND TRANSFERED TO [facility]
== END 2019-06-18 01:06 | disposition home or self-care (01) ==
LOC: MED 20:57
DX: N39.0 Urinary tract infection, site not specified (principal); J45.909 Unspecified asthma, uncomplicated; F03.90 Unspecified dementia, unspecified severity, without behavioral disturbance, psychotic disturbance, mood disturbance, and anxiety; I10 Essential (primary) hypertension; E11.9 Type 2 diabetes mellitus without complications; Z79.899 Other long term (current) drug therapy; Z79.4 Long term (current) use of insulin; Z88.0 Allergy status to penicillin; Z88.1 Allergy status to other antibiotic agents
CPT/HCPCS: 36415; 80048; 83605; 85025; 99283